=== PATIENT | female | born 1960 | race Caucasian/White ===

== ENCOUNTER 2023-08-08 10:30 | Outpatient (RCR) | payer OTHER, SELFPAY ==
--- NOTE | 2023-01-24 15:05 | PT.OIE ---
Current Diagnoses Constipation, unspecified (01/24/23) Stiffness of unspecified hip, not elsewhere classified (01/24/23) Sciatica, unspecified side (01/24/23) Muscle weakness (generalized) (01/24/23) Stress incontinence (female) (male) (01/24/23) Urge incontinence (01/24/23) Other female genital prolapse (01/24/23) Other reduced mobility (01/24/23) Past Medical History (Last Updated 02/21/21 @ 21:02 by Jocelyne Gregorio) Dyspareunia Hormone replacement therapy Hypothyroidism (~2009) Osteopenia Sciatica Past Surgical History (Last Updated 02/21/21 @ 21:02 by Jocelyne Gregorio) Anesthesia History of eye surgery (~1988) History of foot surgery (~2013) History of knee surgery (~2007) Visit Care Team Role Provider Type ALCON Moss Family Provider Advanced [employer]p Revenue Cycle Primary Care Provider Specialty: Medical Address: [address] [place] [address] Email: [email or web address] Lenore Fong MD Attending Provider Physician Referring Provider Specialty: Gynecology FIBERGLASS LAMINATOR Obstetrics Address: [address] [place] [address], [id number] Email: [email or web address] Physical Therapy Initial Evaluation PT-OP-A Visit Information Start: 01/10/23 18:46 Freq: Status: Active Protocol: Document 01/24/23 11:26 LRN (Rec: 01/24/23 13:12 LRN [id number]) Out-Patient Physical Therapy Visit Information Visit Information Visit Type Treatment Note Visit Start Time 11:26 Visit Stop Time 12:14 Total Visit Minutes 48 Visit Number 1 Evaluation Information Evaluation Date 01/24/23 Precautions Precautions Bilateral LE Sciatic pain PT-OP-B Current Condition Start: 01/10/23 18:46 Freq: Status: Active Protocol: Document 01/24/23 11:26 LRN (Rec: 01/24/23 13:12 LRN [id number]) Current Condition History of Current Condition Onset Date 2-3 yrs ago Current Complaints Feels something sometimes and has small leakages going to bathroom. History of Current Condition 2-3 yrs ago had pap smear and was told she had a uterine prolapse. A few months ago did follow up and had a 2-3 prolapse of uterus, bladder, and rectocele. Would prefer to not have uterus removed. Doesn't feel it has worsened in the past 5 yrs. Does Kegel ex as well as abdominal exercises at home. States she sometimes leaks as she is heading to the bathroom after an urge and sometimes leaks with sneezing. Developmental History Developmental History 2 children, vaginal delivery with torn perineum both times with stitch repair. 2nd the stitches tore and was not repaired, so she reports a flap that sticks out . No urinary leakage with biking or hiking. Has back that limits activity. Pt reported PMH: meniscus tear bilaterally. Treatment Goals Patient/Caregiver Goals Pt goal is to 1) Get uterus to lift and strengthening ligs to hold it up, 2) lift rectal and bladder, 3) learn ex's and what to do to prevent surgery , 4) become comfortable at opening of anus. Personal Factors Other Personal Factors That May Effect Sciatic bilateral LE's, Therapy/Recovery hypothyroid. R handed, PT-OP-C Subjective Start: 01/10/23 18:46 Freq: Status: Active Protocol: Document 01/24/23 11:26 LRN (Rec: 01/24/23 13:12 N [id number]) Patient Questionnaires Pelvic Pain and Urgency/Frequency Patient Symptom Scale Pelvic Pain Score 3 PT-OP-I Pelvic Floor Start: 01/10/23 18:46 Freq: Status: Active Protocol: Document 01/24/23 11:26 LRN (Rec: 01/24/23 13:12 N [id number]) Pelvic Floor Assessment Urine Urinary Symptoms Urge Sensation,Prolapse Other Urinary Symptoms Feels uncomfortable at anus. Leakage Size Small Leakage Cause Sneeze,Urge Other Leakage Causes Tampoline Bowel Bowel Surgery No Bowel Symptoms Constipation Other Bowel Symptoms Constipation traveling driving to parents 1x/4-6 wks (2 days before BM). Normally BM daily, quick. Bowel Movement Frequency 1x/daily Siren Stool Chart Comments BM's type 2-5. Pelvic Clock Pelvic Clock Other Tender at 1, 4 & 10 O'Clock. Prolapse Cystocele Grade 3 Rectocele Grade 2 Perineal Descent Resting Absent Bearing Absent Contraction Ability Manual Muscle Testing Left 2 Manual Muscle Testing Right 2 Manual Muscle Testing Anterior 3 Manual Muscle Testing Posterior 3 Muscle Endurance (Seconds) 2 Number of Quick Contractions In 10 5 Seconds Comments Pelvic Floor Comments Mild Dry and increased redness in external perineum. Pt has smaller pelvic opening. Abdominal, gluteals. hip AD assisting with PF contarction. PT-OP-J Posture/Palpation/Skin Start: 01/10/23 18:46 Freq: Status: Active Protocol: Document 01/24/23 11:26 LRN (Rec: 01/24/23 13:12 LRN [id number]) Posture Evaluation Position Standing T-Spine Posture Flattened L-Spine Posture Increased Lordosis Shoulder Posture Neutral,(L) Elevated Arm Posture (L) Internally Rotated,(R) Internally Rotated Pelvis Posture Anteriorly Tilted Knee Posture (L) Neutral,(R) Neutral Ankle/Foot Posture (L) Neutral,(R) Neutral Comments Posture Comments Decreased lordosis, slight anterior tilt PT-OP-K Range of Motion Start: 01/10/23 18:46 Freq: Status: Active Protocol: Document 01/24/23 11:26 LRN (Rec: 01/24/23 13:12 LRN [id number]) Lumbar Spine Range of Motion Lumbar Spine Active Degrees Testing Position Standing Flexion 115 Extension 30 Rotation Left 50 Rotation Right 50 Lateral Flexion Left 18 Lateral Flexion Right 15 Comments Lumbar ROM: Trunk Flexion is 115 deg?s with 83 deg?s hip flexion, Trunk extension is 30 deg?s with 10 deg?s hip extension Scoliosis in mid back upper curve apex to L, lower curve apex to R. Hip Goniometric Range of Motion Hip Right Passive Testing Position Supine Abduction 50 Internal Rotation 45 External Rotation 75 Left Passive Hip ROM WFL Yes Testing Position Supine Abduction 50 Internal Rotation 35 External Rotation 70 PT-OP-M Strength Start: 01/10/23 18:46 Freq: Status: Active Protocol: Document 01/24/23 11:26 LRN (Rec: 01/24/23 13:12 LRN [id number]) Trunk Strength Trunk Manual Muscle Testing Core Stabilization Not able to maintain core stab with MMT of R hip flex, unstable with hip AB/AD, L hip Ext. Hip Strength Hip Manual Muscle Testing Right Flexion (L2) 5 Normal Extension (S1) 3 Fair Abduction 5 Normal Adduction 5 Normal External Rotation 3+ Fair+ Internal Rotation 3+ Fair+ Comments Pain in lower R gluteals. Left Flexion (L2) 5 Normal Extension (S1) 5 Normal Abduction 5 Normal Adduction 5 Normal External Rotation 3+ Fair+ Internal Rotation 3 Fair PT-OP-Q Treatments Start: 01/10/23 18:46 Freq: Status: Active Protocol: Document 01/24/23 11:26 LRN (Rec: 01/24/23 13:12 LRN [id number]) Self-Care/Home Management Treatment Education Other Education Discussed results of evaluation, goals, and plan of care (POC). Pt agreeable to goals and POC. Pt educated in use of Bladder Diary and I/S in tracking for 1 week. Discussed use of 2 different diaries for tracking of bladder. Explained how to fill out diary and counting of urination times. Activities Self-Care/Home Management Activities Issued & reviewed HEP: Kegel ex's and discussed exercise of Quick Flicks, Long Holds and Aggravators. PT-OP-T Assessment and Plan Start: 01/10/23 18:46 Freq: Status: Active Protocol: Document 01/24/23 11:26 LRN (Rec: 01/24/23 13:12 LRN [id number]) Physical Therapy Assessment Rehab Potential Rehabilitation Potential Good Evaluation Complexity Number of Personal Factors/Comorbidities 1-2 Number of Body Systems Impaired 4 or More Clinical Presentation at Evaluation Evolving Impairments Impairments Activity Tolerance,Functional Mobility,Pain,ROM,Soft Tissue Mobility,Strength,Transfers Goals Four Impairment Discomfort in anal region. Mcc Goal (LTG) Pt will become comfortable at opening of anus. LTG Duration 04/24/23 Three Impairment Pt is not able to perform a PF contraction in the absence of abdominal/glut Short Term Goal (STG) Pt will be aware of the sensation of a proper PF contraction. STG Duration 02/15/23 Cardiology Fellow Goal (LTG) Pt will be able to isolate a PF contraction with a rectal and bladder lift, without overuse of the outer abdominal , gluteal, and hip AD muscles . LTG Duration 04/24/23 Two Impairment PF weakness with urinary leakage with an urge and stress. Short Term Goal (STG) Pt will be educated in urinary delay technique. STG Duration 02/01/23 Cardiology Fellow Goal (LTG) Pt will demonstrate improved PF strength per EMG biofeedback. LTG Duration 04/24/23 One Impairment Lacks appropriate self care HEP. Impairment PUF score 3. Short Term Goal (STG) Education in proper methods for transfer with coordination of breathing, PF contractions , and proper vulvar/genital care. STG Duration 02/01/23 Cardiology Fellow Goal (LTG) Pt will be independent with a self care HEP of PF/core strengthening and hip ROM exercises to work towards surgery prevention. LTG Duration 04/24/23 Assessment Summary Assessment Pt is a 62 yo female who presents with mixed urinary incontinence, and cytocele grade 3, and rectocele grade 2 due to weak pelvic floor. Uterus position was not checked today and will be assessed at the next visit. The pt demonstrates decreased long hold and quick contraction strength and coordination of PF tightening with breathholding and obvious substitution of accessory muscles (gluteals, hip adductors and core muscles). Her PF weakness is exacerbated by her sciatic nerve condition and decreased hip symmetry of mobility and her current exercise regime. Constipation is probably a factor in what appears to be the progressive nature of her prolapse. Education in proper methods for transfer and exercise is needed, with coordination of breathing techniques. Her external PF tissues appear mildly dry and red due to tissue irritation. The pt will benefit from skilled physical therapy to achieve the above stated goals . Physical Therapy Plan Frequency and Duration Frequency of Treatment 1x/Week Plan of Care Start Date 01/24/23 Plan of Care End Date 04/24/23 Therapeutic Interventions Therapeutic Interventions Home Exercise Program,Joint Mobilizations,Manual Therapy, Neuromuscular Re-education, Patient/Caregiver Education, Self-Care/Home Management,Soft Tissue Mobilization, Therapeutic Activities, Therapeutic Exercises Modalities Biofeedback,Electric Stimulation Next Visit Focus/Plan Next Note Type Treatment Note Next Visit Plan EMG Biofeedback of PF & assess postion of uterus and external rectal sphincter for proplase. Review Bladder dairy and discussed fluid intake (AM/PM) , bowel movement frequency, & nighttime voiding frequency. Pt education and lengthy discussion of how to have Bowel movements. bowel movements without holding breath and discussed squatty potty, with handout issued for squatty potty. Pt education and discussion in Urinary urge technique with handout issued. Pt education proper vulvar and perineal care with handout issued. Pt educated in PF muscles and internal organ positioning, explaining prolapse condition and discuss how this can worsen with decreased bowel mobility and breath holding. Discussed different pads and usage (urine vs menstrual). Possible need for Sacral balancing. Education in proper methods for transfer with coordination of breathing.
--- NOTE | 2023-01-24 15:05 | PT.OPPOC ---
Physical, Occupational & Speech Therapy At [facility] Current Diagnoses Constipation, unspecified (01/24/23) Stiffness of unspecified hip, not elsewhere classified (01/24/23) Sciatica, unspecified side (01/24/23) Muscle weakness (generalized) (01/24/23) Stress incontinence (female) (male) (01/24/23) Urge incontinence (01/24/23) Other female genital prolapse (01/24/23) Other reduced mobility (01/24/23) Visit Care Team Role Provider Type ALCON Moss Family Provider Advanced Patient Safety Tech Primary Care Provider Specialty: Medical Address: [address] [place] [address], [facility] Email: [email or web address] Lenore Fong MD Attending Provider Physician Referring Provider Specialty: Gynecology SOCIAL MEDIA CAMPAIGN MANAGER Obstetrics Address: [address] [place] [address], [id number] Email: [email or web address] Plan Of Care PT-OP-T Assessment and Plan Start: 01/10/23 18:46 Freq: Status: Active Protocol: Document 01/24/23 11:26 LRN (Rec: 01/24/23 13:12 LRN [id number]) Physical Therapy Assessment Rehab Potential Rehabilitation Potential Good Evaluation Complexity Number of Personal Factors/Comorbidities 1-2 Number of Body Systems Impaired 4 or More Clinical Presentation at Evaluation Evolving Impairments Impairments Activity Tolerance,Functional Mobility,Pain,ROM,Soft Tissue Mobility,Strength,Transfers Goals Four Impairment Discomfort in anal region. Advertising Internship Goal (LTG) Pt will become comfortable at opening of anus. LTG Duration 04/24/23 Three Impairment Pt is not able to perform a PF contraction in the absence of abdominal/glut Short Term Goal (STG) Pt will be aware of the sensation of a proper PF contraction. STG Duration 02/15/23 Advertising Internship Goal (LTG) Pt will be able to isolate a PF contraction with a rectal and bladder lift, without overuse of the outer abdominal , gluteal, and hip AD muscles . LTG Duration 04/24/23 Two Impairment PF weakness with urinary leakage with an urge and stress. Short Term Goal (STG) Pt will be educated in urinary delay technique. STG Duration 02/01/23 Care Home Goal (LTG) Pt will demonstrate improved PF strength per EMG biofeedback. LTG Duration 04/24/23 One Impairment Lacks appropriate self care HEP. Impairment PUF score 3. Short Term Goal (STG) Education in proper methods for transfer with coordination of breathing, PF contractions , and proper vulvar/genital care. STG Duration 02/01/23 Advertising Internship Goal (LTG) Pt will be independent with a self care HEP of PF/core strengthening and hip ROM exercises to work towards surgery prevention. LTG Duration 04/24/23 Assessment Summary Assessment Pt is a 62 yo female who presents with mixed urinary incontinence, and cytocele grade 3, and rectocele grade 2 due to weak pelvic floor. Uterus position was not checked today and will be assessed at the next visit. The pt demonstrates decreased long hold and quick contraction strength and coordination of PF tightening with breathholding and obvious substitution of accessory muscles (gluteals, hip adductors and core muscles). Her PF weakness is exacerbated by her sciatic nerve condition and decreased hip symmetry of mobility and her current exercise regime. Constipation is probably a factor in what appears to be the progressive nature of her prolapse. Education in proper methods for transfer and exercise is needed, with coordination of breathing techniques. Her external PF tissues appear mildly dry and red due to tissue irritation. The pt will benefit from skilled physical therapy to achieve the above stated goals . Physical Therapy Plan Frequency and Duration Frequency of Treatment 1x/Week Plan of Care Start Date 01/24/23 Plan of Care End Date 04/24/23 Therapeutic Interventions Therapeutic Interventions Home Exercise Program,Joint Mobilizations,Manual Therapy, Neuromuscular Re-education, Patient/Caregiver Education, Self-Care/Home Management,Soft Tissue Mobilization, Therapeutic Activities, Therapeutic Exercises Modalities Biofeedback,Electric Stimulation Next Visit Focus/Plan Next Note Type Treatment Note Next Visit Plan EMG Biofeedback of PF & assess postion of uterus and external rectal sphincter for proplase. Review Bladder dairy and discussed fluid intake (AM/PM) , bowel movement frequency, & nighttime voiding frequency. Pt education and lengthy discussion of how to have Bowel movements. bowel movements without holding breath and discussed squatty potty, with handout issued for squatty potty. Pt education and discussion in Urinary urge technique with handout issued. Pt education proper vulvar and perineal care with handout issued. Pt educated in PF muscles and internal organ positioning, explaining prolapse condition and discuss how this can worsen with decreased bowel mobility and breath holding. Discussed different pads and usage (urine vs menstrual). Possible need for Sacral balancing. Education in proper methods for transfer with coordination of breathing. Plan of Care Dates Plan of Care Start Date 01/24/23 Plan of Care End Date 04/24/23 Electronically Signed by: Juany Collins, PT 01/24/23 [id number] If you are in agreement with this Plan of Care, please return a signed and dated copy. I have reviewed this Plan of Care and certify that the skilled therapy services above are required to meet the patient?s needs. Physician Signature Date Printed Name and Credentials Clinical Instructor Signature Printed Name and Credentials
--- NOTE | 2023-01-31 17:36 | PT.OTN ---
Current Diagnoses Constipation, unspecified (01/31/23) Stiffness of unspecified hip, not elsewhere classified (01/31/23) Sciatica, unspecified side (01/31/23) Muscle weakness (generalized) (01/31/23) Stress incontinence (female) (male) (01/31/23) Urge incontinence (01/31/23) Other female genital prolapse (01/31/23) Other reduced mobility (01/31/23) Physical Therapy Treatment Note PT-OP-A Visit Information Start: 01/10/23 18:46 Freq: Status: Active Protocol: Document 01/31/23 14:07 LRN (Rec: 01/31/23 17:35 LRN [id number]) Out-Patient Physical Therapy Visit Information Visit Information Visit Type Treatment Note Visit Start Time 14:07 Visit Stop Time 15:02 Total Visit Minutes 55 Visit Number 2 Evaluation Information Evaluation Date 01/24/23 Precautions Precautions Bilateral LE Sciatic pain PT-OP-B Current Condition Start: 01/10/23 18:46 Freq: Status: Active Protocol: Document 01/24/23 11:26 LRN (Rec: 01/24/23 13:12 LRN [id number]) Current Condition History of Current Condition Onset Date 2-3 yrs ago Current Complaints Feels something sometimes and has small leakages going to bathroom. History of Current Condition 2-3 yrs ago had pap smear and was told she had a uterine prolapse. A few months ago did follow up and had a 2-3 prolapse of uterus, bladder, and rectocele. Would prefer to not have uterus removed. Doesn't feel it has worsened in the past 5 yrs. Does Kegel ex as well as abdominal exercises at home. States she sometimes leaks as she is heading to the bathroom after an urge and sometimes leaks with sneezing. Developmental History Developmental History 2 children, vaginal delivery with torn perineum both times with stitch repair. 2nd the stitches tore and was not repaired, so she reports a flap that sticks out . No urinary leakage with biking or hiking. Has back that limits activity. Pt reported PMH: meniscus tear bilaterally. Treatment Goals Patient/Caregiver Goals Pt goal is to 1) Get uterus to lift and strengthening ligs to hold it up, 2) lift rectal and bladder, 3) learn ex's and what to do to prevent surgery , 4) become comfortable at opening of anus. Personal Factors Other Personal Factors That May Effect Sciatic bilateral LE's, Therapy/Recovery hypothyroid. R handed, PT-OP-C Subjective Start: 01/10/23 18:46 Freq: Status: Active Protocol: Document 01/31/23 14:07 LRN (Rec: 01/31/23 17:35 LRN [id number]) OP-PT Subjective Patient Comments Patient Comments Per bladder diary, she had one time period of constipation. Reports she actually measure her urine output in a cup. States she is under a lot of stress. PT-OP-I Pelvic Floor Start: 01/10/23 18:46 Freq: Status: Active Protocol: Document 01/31/23 14:07 LRN (Rec: 01/31/23 17:35 LRN [id number]) Pelvic Floor Assessment Prolapse Prolapse Comments Uterine prolapse felt. SEMG (uV) Baseline 2.7 Quick Contraction 14.2 10 Second Contraction 12.8 Recruitment Pattern Good Relaxation Fair Holding Poor/Slow Stability of Hold Poor/Slow SEMG Stability of Rest Fair Comments Pelvic Floor Comments Quick Flicks: 10 reps strength (uV's): avg work 14.2, avg rest 6.8. 20 reps strength (uV's): avg work 13.8, avg rest 6.1. Long Holds: 10 reps strength (uV's): avg work 12.8, avg rest 4.6. 20 reps strength (uV's): avg work 12.6, avg rest 3.6. PT-OP-J Posture/Palpation/Skin Start: 01/10/23 18:46 Freq: Status: Active Protocol: Document 01/24/23 11:26 LRN (Rec: 01/24/23 13:12 LRN [id number]) Posture Evaluation Position Standing T-Spine Posture Flattened L-Spine Posture Increased Lordosis Shoulder Posture Neutral,(L) Elevated Arm Posture (L) Internally Rotated,(R) Internally Rotated Pelvis Posture Anteriorly Tilted Knee Posture (L) Neutral,(R) Neutral Ankle/Foot Posture (L) Neutral,(R) Neutral Comments Posture Comments Decreased lordosis, slight anterior tilt PT-OP-K Range of Motion Start: 01/10/23 18:46 Freq: Status: Active Protocol: Document 01/24/23 11:26 LRN (Rec: 01/24/23 13:12 LRN [id number]) Lumbar Spine Range of Motion Lumbar Spine Active Degrees Testing Position Standing Flexion 115 Extension 30 Rotation Left 50 Rotation Right 50 Lateral Flexion Left 18 Lateral Flexion Right 15 Comments Lumbar ROM: Trunk Flexion is 115 deg?s with 83 deg?s hip flexion, Trunk extension is 30 deg?s with 10 deg?s hip extension Scoliosis in mid back upper curve apex to L, lower curve apex to R. Hip Goniometric Range of Motion Hip Right Passive Testing Position Supine Abduction 50 Internal Rotation 45 External Rotation 75 Left Passive Hip ROM WFL Yes Testing Position Supine Abduction 50 Internal Rotation 35 External Rotation 70 PT-OP-M Strength Start: 01/10/23 18:46 Freq: Status: Active Protocol: Document 01/24/23 11:26 LRN (Rec: 01/24/23 13:12 LRN [id number]) Trunk Strength Trunk Manual Muscle Testing Core Stabilization Not able to maintain core stab with MMT of R hip flex, unstable with hip AB/AD, L hip Ext. Hip Strength Hip Manual Muscle Testing Right Flexion (L2) 5 Normal Extension (S1) 3 Fair Abduction 5 Normal Adduction 5 Normal External Rotation 3+ Fair+ Internal Rotation 3+ Fair+ Comments Pain in lower R gluteals. Left Flexion (L2) 5 Normal Extension (S1) 5 Normal Abduction 5 Normal Adduction 5 Normal External Rotation 3+ Fair+ Internal Rotation 3 Fair PT-OP-Q Treatments Start: 01/10/23 18:46 Freq: Status: Active Protocol: Document 01/31/23 14:07 LRN (Rec: 01/31/23 17:35 LRN [id number]) Therapeutic Exercises Supine Exercises Bowel/ILU massage Supine Exercise Name Bowel/ILU massage Reps/Minutes x 3 Comments Pt cued for direction, start/ stop locations. PF contraction Supine Exercise Name PF contraction w/assess of anus for rectal prolapse vs rectocele Reps/Minutes 2' Long Holds Supine Exercise Name Long Holds Reps/Minutes 10 SH/10 SH rest Comments 10 & 20 rep contractions (see PF assessment above) Quick Flicks Supine Exercise Name Quick Flicks Equipment Used vEMG electrode Reps/Minutes 2 sec/5 sec rest Comments 10 & 20 rep contractions (see PF assessment above) Self-Care/Home Management Treatment Education Other Education Educated and discussed norms for hydration and regarding difference with types of fluid ingested. Recommended pt improve fluid intake without increasing caffeine intake. Pt education and discussion of Food irritants and effect on bladder. Education and discussion of bowel massage and ILU bowel massage. Activities Self-Care/Home Management Activities Issued & reviewed handout for bladder irritants, bowel massage. Issued at pt request [place] stool types. Handout issued for diaphragmatic breathing. PT-OP-T Assessment and Plan Start: 01/10/23 18:46 Freq: Status: Active Protocol: Document 01/31/23 14:07 LRN (Rec: 01/31/23 17:35 LRN [id number]) Physical Therapy Assessment Goals Four Impairment Discomfort in anal region. Prison Goal (LTG) Pt will become comfortable at opening of anus. LTG Duration 04/24/23 Three Impairment Pt is not able to perform a PF contraction in the absence of abdominal/glut Short Term Goal (STG) Pt will be aware of the sensation of a proper PF contraction. STG Duration 02/15/23 Screw Machine Set Up Operator Tool Goal (LTG) Pt will be able to isolate a PF contraction with a rectal and bladder lift, without overuse of the outer abdominal , gluteal, and hip AD muscles . LTG Duration 04/24/23 Two Impairment PF weakness with urinary leakage with an urge and stress. Short Term Goal (STG) Pt will be educated in urinary delay technique. STG Duration 02/01/23 Prison Goal (LTG) Pt will demonstrate improved PF strength per EMG biofeedback. LTG Duration 04/24/23 One Impairment Lacks appropriate self care HEP. Impairment PUF score 3. Short Term Goal (STG) Education in proper methods for transfer with coordination of breathing, PF contractions , and proper vulvar/genital care. STG Duration 02/01/23 Screw Machine Set Up Operator Tool Goal (LTG) Pt will be independent with a self care HEP of PF/core strengthening and hip ROM exercises to work towards surgery prevention. LTG Duration 04/24/23 Assessment Summary Assessment Pt with mixed urinary incontinence and cytocele grade 3, and rectocele grade 2 due to weak pelvic floor. Noted today uterine prolapse but no rectal prolapse, rectocele grade 2. BM mostly once per day and no significant problem noted with nighttime voiding, possibly due to limited fluid intake. Extra time needed for use and assist for placing vEMG electrode. Pt receptive to education and of information given. Physical Therapy Plan Frequency and Duration Frequency of Treatment 1x/Week Plan of Care Start Date 01/24/23 Plan of Care End Date 04/24/23 Next Visit Focus/Plan Next Note Type Treatment Note Next Visit Plan EMG Biofeedback for PF Long Hold strengthening improved relaxation tone. Pt education and discussion of bowel movements without holding breath and discussed squatty potty, with handout issued for squatty potty. Pt education and discussion in Urinary urge technique with handout issued. Pt education proper vulvar and perineal care with handout issued. Pt educated in PF muscles and internal organ positioning if needed. Explain prolapse condition and discuss how this can worsen with breath holding (and decreased bowel mobility). Discussed different pads and usage (urine vs menstrual). Possible need for Sacral balancing. Education in proper methods for transfer with coordination of breathing. Strengthen PF long holds and Quick Flicks resting tone ( decrease)
--- NOTE | 2023-02-07 17:40 | PT.OTN ---
Current Diagnoses Constipation, unspecified (02/07/23) Stiffness of unspecified hip, not elsewhere classified (02/07/23) Sciatica, unspecified side (02/07/23) Muscle weakness (generalized) (02/07/23) Stress incontinence (female) (male) (02/07/23) Urge incontinence (02/07/23) Other female genital prolapse (02/07/23) Other reduced mobility (02/07/23) Physical Therapy Treatment Note PT-OP-A Visit Information Start: 01/10/23 18:46 Freq: Status: Active Protocol: Document 02/07/23 08:21 LRN (Rec: 02/07/23 09:05 LRN [id number]) Out-Patient Physical Therapy Visit Information Visit Information Visit Type Treatment Note Visit Start Time 08:21 Visit Stop Time 09:59 Total Visit Minutes 38 Evaluation Information Evaluation Date 02/07/23 Precautions Precautions Bilateral LE Sciatic pain PT-OP-B Current Condition Start: 01/10/23 18:46 Freq: Status: Active Protocol: Document 01/24/23 11:26 LRN (Rec: 01/24/23 13:12 LRN [id number]) Current Condition History of Current Condition Onset Date 2-3 yrs ago Current Complaints Feels something sometimes and has small leakages going to bathroom. History of Current Condition 2-3 yrs ago had pap smear and was told she had a uterine prolapse. A few months ago did follow up and had a 2-3 prolapse of uterus, bladder, and rectocele. Would prefer to not have uterus removed. Doesn't feel it has worsened in the past 5 yrs. Does Kegel ex as well as abdominal exercises at home. States she sometimes leaks as she is heading to the bathroom after an urge and sometimes leaks with sneezing. Developmental History Developmental History 2 children, vaginal delivery with torn perineum both times with stitch repair. 2nd the stitches tore and was not repaired, so she reports a flap that sticks out . No urinary leakage with biking or hiking. Has back that limits activity. Pt reported PMH: meniscus tear bilaterally. Treatment Goals Patient/Caregiver Goals Pt goal is to 1) Get uterus to lift and strengthening ligs to hold it up, 2) lift rectal and bladder, 3) learn ex's and what to do to prevent surgery , 4) become comfortable at opening of anus. Personal Factors Other Personal Factors That May Effect Sciatic bilateral LE's, Therapy/Recovery hypothyroid. R handed, PT-OP-C Subjective Start: 01/10/23 18:46 Freq: Status: Active Protocol: Document 02/07/23 08:21 LRN (Rec: 02/07/23 09:05 LRN [id number]) OP-PT Subjective Patient Comments Patient Comments A little less irritation on the backside. Doesn't feel it as much anymore. PT-OP-I Pelvic Floor Start: 01/10/23 18:46 Freq: Status: Active Protocol: Document 01/31/23 14:07 LRN (Rec: 01/31/23 17:35 LRN [id number]) Pelvic Floor Assessment Prolapse Prolapse Comments Uterine prolapse felt. SEMG (uV) Baseline 2.7 Quick Contraction 14.2 10 Second Contraction 12.8 Recruitment Pattern Good Relaxation Fair Holding Poor/Slow Stability of Hold Poor/Slow SEMG Stability of Rest Fair Comments Pelvic Floor Comments Quick Flicks: 10 reps strength (uV's): avg work 14.2, avg rest 6.8. 20 reps strength (uV's): avg work 13.8, avg rest 6.1. Long Holds: 10 reps strength (uV's): avg work 12.8, avg rest 4.6. 20 reps strength (uV's): avg work 12.6, avg rest 3.6. PT-OP-J Posture/Palpation/Skin Start: 01/10/23 18:46 Freq: Status: Active Protocol: Document 01/24/23 11:26 LRN (Rec: 01/24/23 13:12 LRN [id number]) Posture Evaluation Position Standing T-Spine Posture Flattened L-Spine Posture Increased Lordosis Shoulder Posture Neutral,(L) Elevated Arm Posture (L) Internally Rotated,(R) Internally Rotated Pelvis Posture Anteriorly Tilted Knee Posture (L) Neutral,(R) Neutral Ankle/Foot Posture (L) Neutral,(R) Neutral Comments Posture Comments Decreased lordosis, slight anterior tilt PT-OP-K Range of Motion Start: 01/10/23 18:46 Freq: Status: Active Protocol: Document 01/24/23 11:26 LRN (Rec: 01/24/23 13:12 LRN [id number]) Lumbar Spine Range of Motion Lumbar Spine Active Degrees Testing Position Standing Flexion 115 Extension 30 Rotation Left 50 Rotation Right 50 Lateral Flexion Left 18 Lateral Flexion Right 15 Comments Lumbar ROM: Trunk Flexion is 115 deg?s with 83 deg?s hip flexion, Trunk extension is 30 deg?s with 10 deg?s hip extension Scoliosis in mid back upper curve apex to L, lower curve apex to R. Hip Goniometric Range of Motion Hip Right Passive Testing Position Supine Abduction 50 Internal Rotation 45 External Rotation 75 Left Passive Hip ROM WFL Yes Testing Position Supine Abduction 50 Internal Rotation 35 External Rotation 70 PT-OP-M Strength Start: 01/10/23 18:46 Freq: Status: Active Protocol: Document 01/24/23 11:26 LRN (Rec: 01/24/23 13:12 LRN [id number]) Trunk Strength Trunk Manual Muscle Testing Core Stabilization Not able to maintain core stab with MMT of R hip flex, unstable with hip AB/AD, L hip Ext. Hip Strength Hip Manual Muscle Testing Right Flexion (L2) 5 Normal Extension (S1) 3 Fair Abduction 5 Normal Adduction 5 Normal External Rotation 3+ Fair+ Internal Rotation 3+ Fair+ Comments Pain in lower R gluteals. Left Flexion (L2) 5 Normal Extension (S1) 5 Normal Abduction 5 Normal Adduction 5 Normal External Rotation 3+ Fair+ Internal Rotation 3 Fair PT-OP-Q Treatments Start: 01/10/23 18:46 Freq: Status: Active Protocol: Document 02/07/23 08:21 LRN (Rec: 02/07/23 09:05 LRN [id number]) Therapeutic Exercises Supine Exercises PF contraction Supine Exercise Name PF contraction in isolation of TA & hip AD's Reps/Minutes 10' Comments Much v cuing and self phys cuing needed. Self-Care/Home Management Treatment Education Other Education Extended discussions of: -Bladder diary and choices of pateint. Recommendations made regarding fluid intake and types, -Voiding frequencies based on types of fluid intake, voiding amounts. -Possible LB involvement with PF frequencies due to decreased PF stability with LB instability. -Discussed at length pressure system of abdominal region. -Discussed effect of dehydration on BM's and abdominal pressure management. PT-OP-T Assessment and Plan Start: 01/10/23 18:46 Freq: Status: Active Protocol: Document 02/07/23 08:21 LRN (Rec: 02/07/23 09:05 LRN [id number]) Physical Therapy Assessment Goals Four Impairment Discomfort in anal region. Correction Goal (LTG) Pt will become comfortable at opening of anus. LTG Duration 04/24/23 Three Impairment Pt is not able to perform a PF contraction in the absence of abdominal/glut Short Term Goal (STG) Pt will be aware of the sensation of a proper PF contraction. STG Duration 02/15/23 Management Scientist Goal (LTG) Pt will be able to isolate a PF contraction with a rectal and bladder lift, without overuse of the outer abdominal , gluteal, and hip AD muscles . LTG Duration 04/24/23 Two Impairment PF weakness with urinary leakage with an urge and stress. Short Term Goal (STG) Pt will be educated in urinary delay technique. STG Duration 02/01/23 Management Scientist Goal (LTG) Pt will demonstrate improved PF strength per EMG biofeedback. LTG Duration 04/24/23 One Impairment Lacks appropriate self care HEP. Impairment PUF score 3. Short Term Goal (STG) Education in proper methods for transfer with coordination of breathing, PF contractions , and proper vulvar/genital care. STG Duration 02/01/23 Correction Goal (LTG) Pt will be independent with a self care HEP of PF/core strengthening and hip ROM exercises to work towards surgery prevention. LTG Duration 04/24/23 Assessment Summary Assessment Unable to use EMG biofeedback today. Pt able to perform PF contraction in isolation of the hip AD & Gluteal ms, but TA tightens mildly. Pt was receptive to pt education and discussion of self care (see self care). Pt is not wanting to give up coffee; therefore it was discussed fluid intake is a choice and as long as the pt is aware of the consequencies of drinking bladder irritatants on her frequency of voiding. Pt appears to be okay with voiding every hour after drinking coffee, but otherwise voiding every 2 hrs may be due to small bladder and habit ; therefore bladder retraining may be needed. Physical Therapy Plan Frequency and Duration Frequency of Treatment 1x/Week Plan of Care Start Date 01/24/23 Plan of Care End Date 04/24/23 Next Visit Focus/Plan Next Note Type Treatment Note Next Visit Plan EMG Biofeedback for PF Long Hold strengthening improved relaxation tone. Pt education and discussion of bowel movements without holding breath and discuss squatty potty, with handout issued for squatty potty. Pt education and discussion in Urinary urge technique with handout issued. Pt education proper vulvar and perineal care with handout issued. Pt educated in PF muscles and internal organ positioning if needed. Discussed different pads and usage (urine vs menstrual). Possible need for Sacral balancing. Education in proper methods for transfer with coordination of breathing. Strengthen PF long holds and Quick Flicks resting tone ( decrease)
--- NOTE | 2023-02-14 17:19 | PT.OTN ---
Current Diagnoses Constipation, unspecified (02/14/23) Stiffness of unspecified hip, not elsewhere classified (02/14/23) Sciatica, unspecified side (02/14/23) Muscle weakness (generalized) (02/14/23) Stress incontinence (female) (male) (02/14/23) Urge incontinence (02/14/23) Other female genital prolapse (02/14/23) Other reduced mobility (02/14/23) Physical Therapy Treatment Note PT-OP-A Visit Information Start: 01/10/23 18:46 Freq: Status: Active Protocol: Document 02/14/23 10:36 LRN (Rec: 02/14/23 11:20 LRN [id number]) Out-Patient Physical Therapy Visit Information Visit Information Visit Type Treatment Note Visit Start Time 10:36 Visit Stop Time 11:14 Total Visit Minutes 38 Visit Number 4 Evaluation Information Evaluation Date 02/07/23 Precautions Precautions Bilateral LE Sciatic pain PT-OP-B Current Condition Start: 01/10/23 18:46 Freq: Status: Active Protocol: Document 01/24/23 11:26 LRN (Rec: 01/24/23 13:12 LRN [id number]) Current Condition History of Current Condition Onset Date 2-3 yrs ago Current Complaints Feels something sometimes and has small leakages going to bathroom. History of Current Condition 2-3 yrs ago had pap smear and was told she had a uterine prolapse. A few months ago did follow up and had a 2-3 prolapse of uterus, bladder, and rectocele. Would prefer to not have uterus removed. Doesn't feel it has worsened in the past 5 yrs. Does Kegel ex as well as abdominal exercises at home. States she sometimes leaks as she is heading to the bathroom after an urge and sometimes leaks with sneezing. Developmental History Developmental History 2 children, vaginal delivery with torn perineum both times with stitch repair. 2nd the stitches tore and was not repaired, so she reports a flap that sticks out . No urinary leakage with biking or hiking. Has back that limits activity. Pt reported PMH: meniscus tear bilaterally. Treatment Goals Patient/Caregiver Goals Pt goal is to 1) Get uterus to lift and strengthening ligs to hold it up, 2) lift rectal and bladder, 3) learn ex's and what to do to prevent surgery , 4) become comfortable at opening of anus. Personal Factors Other Personal Factors That May Effect Sciatic bilateral LE's, Therapy/Recovery hypothyroid. R handed, PT-OP-C Subjective Start: 01/10/23 18:46 Freq: Status: Active Protocol: Document 02/14/23 10:36 LRN (Rec: 02/14/23 11:20 LRN [id number]) OP-PT Subjective Patient Comments Patient Comments Pt has many questions regarding her fears of worsening of her situation and talk of surgery. Pt became on edge of tears with talk of her social stressors of her parents. Pt emotionally labile. PT-OP-I Pelvic Floor Start: 01/10/23 18:46 Freq: Status: Active Protocol: Document 01/31/23 14:07 LRN (Rec: 01/31/23 17:35 LRN [id number]) Pelvic Floor Assessment Prolapse Prolapse Comments Uterine prolapse felt. SEMG (uV) Baseline 2.7 Quick Contraction 14.2 10 Second Contraction 12.8 Recruitment Pattern Good Relaxation Fair Holding Poor/Slow Stability of Hold Poor/Slow SEMG Stability of Rest Fair Comments Pelvic Floor Comments Quick Flicks: 10 reps strength (uV's): avg work 14.2, avg rest 6.8. 20 reps strength (uV's): avg work 13.8, avg rest 6.1. Long Holds: 10 reps strength (uV's): avg work 12.8, avg rest 4.6. 20 reps strength (uV's): avg work 12.6, avg rest 3.6. PT-OP-J Posture/Palpation/Skin Start: 01/10/23 18:46 Freq: Status: Active Protocol: Document 01/24/23 11:26 LRN (Rec: 01/24/23 13:12 LRN [id number]) Posture Evaluation Position Standing T-Spine Posture Flattened L-Spine Posture Increased Lordosis Shoulder Posture Neutral,(L) Elevated Arm Posture (L) Internally Rotated,(R) Internally Rotated Pelvis Posture Anteriorly Tilted Knee Posture (L) Neutral,(R) Neutral Ankle/Foot Posture (L) Neutral,(R) Neutral Comments Posture Comments Decreased lordosis, slight anterior tilt PT-OP-K Range of Motion Start: 01/10/23 18:46 Freq: Status: Active Protocol: Document 01/24/23 11:26 LRN (Rec: 01/24/23 13:12 LRN [id number]) Lumbar Spine Range of Motion Lumbar Spine Active Degrees Testing Position Standing Flexion 115 Extension 30 Rotation Left 50 Rotation Right 50 Lateral Flexion Left 18 Lateral Flexion Right 15 Comments Lumbar ROM: Trunk Flexion is 115 deg?s with 83 deg?s hip flexion, Trunk extension is 30 deg?s with 10 deg?s hip extension Scoliosis in mid back upper curve apex to L, lower curve apex to R. Hip Goniometric Range of Motion Hip Right Passive Testing Position Supine Abduction 50 Internal Rotation 45 External Rotation 75 Left Passive Hip ROM WFL Yes Testing Position Supine Abduction 50 Internal Rotation 35 External Rotation 70 PT-OP-M Strength Start: 01/10/23 18:46 Freq: Status: Active Protocol: Document 01/24/23 11:26 LRN (Rec: 01/24/23 13:12 LRN [id number]) Trunk Strength Trunk Manual Muscle Testing Core Stabilization Not able to maintain core stab with MMT of R hip flex, unstable with hip AB/AD, L hip Ext. Hip Strength Hip Manual Muscle Testing Right Flexion (L2) 5 Normal Extension (S1) 3 Fair Abduction 5 Normal Adduction 5 Normal External Rotation 3+ Fair+ Internal Rotation 3+ Fair+ Comments Pain in lower R gluteals. Left Flexion (L2) 5 Normal Extension (S1) 5 Normal Abduction 5 Normal Adduction 5 Normal External Rotation 3+ Fair+ Internal Rotation 3 Fair PT-OP-Q Treatments Start: 01/10/23 18:46 Freq: Status: Active Protocol: Document 02/14/23 10:36 LRN (Rec: 02/14/23 11:20 LRN [id number]) Self-Care/Home Management Treatment Education Other Education Discussed and reviewed at length: anatomy of pelvis (PF muscles strength and internal organ positioning relationship with handout of 2 dimensional drawings issued), connection to sciatic nerve and bowel management/fluid management, holistic involvement, rehab potential, pt current progress , use of deep breathing for reduction of core pressure reduction for stressors outside of her home, Pt education and discussion of bowel movements without holding breath and discussion of use of squatty potty, with handout issued for squatty potty. Discussed connection between deep breathing and sympathetic tone. Discussed pt compliance, functional and recreational activities requiring pt compliance with coordination of breathing/core pressures, and progression with her program per POC. Discussed pessary options and recommended pt discuss with referring physician possible use. Activities Self-Care/Home Management Activities Issued & reviewed handout for squatty potty, and pelvic anatomy. Issued genital hygiene and vulvar care for women with I/S for pt to read and review next visit as needed. PT-OP-T Assessment and Plan Start: 01/10/23 18:46 Freq: Status: Active Protocol: Document 02/14/23 10:36 LRN (Rec: 02/14/23 11:20 LRN [id number]) Physical Therapy Assessment Goals Four Impairment Discomfort in anal region. Detention Goal (LTG) Pt will become comfortable at opening of anus. LTG Duration 04/24/23 Three Impairment Pt is not able to perform a PF contraction in the absence of abdominal/glut Short Term Goal (STG) Pt will be aware of the sensation of a proper PF contraction. STG Duration 02/15/23 Detention Goal (LTG) Pt will be able to isolate a PF contraction with a rectal and bladder lift, without overuse of the outer abdominal , gluteal, and hip AD muscles . LTG Duration 04/24/23 Two Impairment PF weakness with urinary leakage with an urge and stress. Short Term Goal (STG) Pt will be educated in urinary delay technique. STG Duration 02/01/23 Substance Abuse Specialist Goal (LTG) Pt will demonstrate improved PF strength per EMG biofeedback. LTG Duration 04/24/23 One Impairment Lacks appropriate self care HEP. Impairment PUF score 3. Short Term Goal (STG) Education in proper methods for transfer with coordination of breathing, PF contractions , and proper vulvar/genital care. 02/14/23: Educated in pt transfers with coordination of breathing and PF contractions . Issued handout for proper vulvar/genital care. STG Duration 02/01/23 partially met goal 02/14/23 Detention Goal (LTG) Pt will be independent with a self care HEP of PF/core strengthening and hip ROM exercises to work towards surgery prevention. 02/14/23: I/S pt in transfers with coordination of breathing and PF strengthening (long holds and quick flicks). LTG Duration 04/24/23 progressed 02/14/23 . Assessment Summary Assessment Pt with mixed urinary incontinence and cytocele grade 3, and rectocele grade 2 due to weak pelvic floor. Pt attends in distress due to lack of knowledge of her condition, connection between pelvic floor and sciatic n pain, her rehab potential, uncertainty of progress, and stressors outside of her home. Pt needing discussion and education and understanding in all these areas for reassurance, compliance, and progression with program POC. Not able to EMG biofeedback or strengthening due to education/discussion needs. Physical Therapy Plan Frequency and Duration Frequency of Treatment 1x/Week Plan of Care Start Date 01/24/23 Plan of Care End Date 04/24/23 Next Visit Focus/Plan Next Note Type Treatment Note Next Visit Plan Review issued vulvar and perineal care handouts (STG #1 ), and transfers with coordination of breathing. EMG Biofeedback for PF Long Hold strengthening improved relaxation tone. Pt education and discussion in Urinary urge technique with handout issued. Discussed different pads and usage (urine vs menstrual). Possible need for Sacral balancing. Strengthen PF long holds and Quick Flicks resting tone ( decrease) Add hip strethces.
--- NOTE | 2023-02-21 17:42 | PT.OTN ---
Current Diagnoses Constipation, unspecified (02/21/23) Stiffness of unspecified hip, not elsewhere classified (02/21/23) Sciatica, unspecified side (02/21/23) Muscle weakness (generalized) (02/21/23) Stress incontinence (female) (male) (02/21/23) Urge incontinence (02/21/23) Other female genital prolapse (02/21/23) Other reduced mobility (02/21/23) Physical Therapy Treatment Note PT-OP-A Visit Information Start: 01/10/23 18:46 Freq: Status: Active Protocol: Document 02/21/23 10:33 LRN (Rec: 02/21/23 11:18 LRN [id number]) Out-Patient Physical Therapy Visit Information Visit Information Visit Type Treatment Note Visit Start Time 10:33 Visit Stop Time 11:15 Total Visit Minutes 42 Visit Number 4 Evaluation Information Evaluation Date 02/07/23 Precautions Precautions Bilateral LE Sciatic pain PT-OP-B Current Condition Start: 01/10/23 18:46 Freq: Status: Active Protocol: Document 01/24/23 11:26 LRN (Rec: 01/24/23 13:12 LRN [id number]) Current Condition History of Current Condition Onset Date 2-3 yrs ago Current Complaints Feels something sometimes and has small leakages going to bathroom. History of Current Condition 2-3 yrs ago had pap smear and was told she had a uterine prolapse. A few months ago did follow up and had a 2-3 prolapse of uterus, bladder, and rectocele. Would prefer to not have uterus removed. Doesn't feel it has worsened in the past 5 yrs. Does Kegel ex as well as abdominal exercises at home. States she sometimes leaks as she is heading to the bathroom after an urge and sometimes leaks with sneezing. Developmental History Developmental History 2 children, vaginal delivery with torn perineum both times with stitch repair. 2nd the stitches tore and was not repaired, so she reports a flap that sticks out . No urinary leakage with biking or hiking. Has back that limits activity. Pt reported PMH: meniscus tear bilaterally. Treatment Goals Patient/Caregiver Goals Pt goal is to 1) Get uterus to lift and strengthening ligs to hold it up, 2) lift rectal and bladder, 3) learn ex's and what to do to prevent surgery , 4) become comfortable at opening of anus. Personal Factors Other Personal Factors That May Effect Sciatic bilateral LE's, Therapy/Recovery hypothyroid. R handed, PT-OP-C Subjective Start: 01/10/23 18:46 Freq: Status: Active Protocol: Document 02/21/23 10:33 LRN (Rec: 02/21/23 11:18 LRN [id number]) OP-PT Subjective Patient Comments Patient Comments Seems like bladder is holding more, seems to be 6-12 oz, where before it was 4 oz, and is drinking more. PT-OP-I Pelvic Floor Start: 01/10/23 18:46 Freq: Status: Active Protocol: Document 01/31/23 14:07 LRN (Rec: 01/31/23 17:35 LRN [id number]) Pelvic Floor Assessment Prolapse Prolapse Comments Uterine prolapse felt. SEMG (uV) Baseline 2.7 Quick Contraction 14.2 10 Second Contraction 12.8 Recruitment Pattern Good Relaxation Fair Holding Poor/Slow Stability of Hold Poor/Slow SEMG Stability of Rest Fair Comments Pelvic Floor Comments Quick Flicks: 10 reps strength (uV's): avg work 14.2, avg rest 6.8. 20 reps strength (uV's): avg work 13.8, avg rest 6.1. Long Holds: 10 reps strength (uV's): avg work 12.8, avg rest 4.6. 20 reps strength (uV's): avg work 12.6, avg rest 3.6. PT-OP-J Posture/Palpation/Skin Start: 01/10/23 18:46 Freq: Status: Active Protocol: Document 01/24/23 11:26 LRN (Rec: 01/24/23 13:12 LRN [id number]) Posture Evaluation Position Standing T-Spine Posture Flattened L-Spine Posture Increased Lordosis Shoulder Posture Neutral,(L) Elevated Arm Posture (L) Internally Rotated,(R) Internally Rotated Pelvis Posture Anteriorly Tilted Knee Posture (L) Neutral,(R) Neutral Ankle/Foot Posture (L) Neutral,(R) Neutral Comments Posture Comments Decreased lordosis, slight anterior tilt PT-OP-K Range of Motion Start: 01/10/23 18:46 Freq: Status: Active Protocol: Document 01/24/23 11:26 LRN (Rec: 01/24/23 13:12 LRN [id number]) Lumbar Spine Range of Motion Lumbar Spine Active Degrees Testing Position Standing Flexion 115 Extension 30 Rotation Left 50 Rotation Right 50 Lateral Flexion Left 18 Lateral Flexion Right 15 Comments Lumbar ROM: Trunk Flexion is 115 deg?s with 83 deg?s hip flexion, Trunk extension is 30 deg?s with 10 deg?s hip extension Scoliosis in mid back upper curve apex to L, lower curve apex to R. Hip Goniometric Range of Motion Hip Right Passive Testing Position Supine Abduction 50 Internal Rotation 45 External Rotation 75 Left Passive Hip ROM WFL Yes Testing Position Supine Abduction 50 Internal Rotation 35 External Rotation 70 PT-OP-M Strength Start: 01/10/23 18:46 Freq: Status: Active Protocol: Document 01/24/23 11:26 LRN (Rec: 01/24/23 13:12 LRN [id number]) Trunk Strength Trunk Manual Muscle Testing Core Stabilization Not able to maintain core stab with MMT of R hip flex, unstable with hip AB/AD, L hip Ext. Hip Strength Hip Manual Muscle Testing Right Flexion (L2) 5 Normal Extension (S1) 3 Fair Abduction 5 Normal Adduction 5 Normal External Rotation 3+ Fair+ Internal Rotation 3+ Fair+ Comments Pain in lower R gluteals. Left Flexion (L2) 5 Normal Extension (S1) 5 Normal Abduction 5 Normal Adduction 5 Normal External Rotation 3+ Fair+ Internal Rotation 3 Fair PT-OP-Q Treatments Start: 01/10/23 18:46 Freq: Status: Active Protocol: Document 02/21/23 10:33 LRN (Rec: 02/21/23 11:18 LRN [id number]) Therapeutic Exercises Supine Exercises Sit<>Supine Supine Exercise Name Transfer training review for proper coordination of breathwork and PF contr Reps/Minutes 8' Comments Discussion needed for physiological reason for breathwork with transfer. TA tightening vs Rectus Supine Exercise Name On wedge PF Quick Flicks/Long holds with TA vs Rectus tightening Reps/Minutes 15' , 8 reps head lift = 10 secs. Comments Educ done at length throughout ex for awareness coordinating breath/PF/ex PF/LE roll in/out Supine Exercise Name On Wedge: PF/LE roll in/out Reps/Minutes 8' Comments Cuining for breathing and PF donnie. PF contraction Supine Exercise Name On Wedge: PF contractions Reps/Minutes 2' Other Exercises Transfer training Other Exercise Name Transfer coordinating with breath work and PF contraction Self-Care/Home Management Treatment Education Patient Education Home Exercise Program Other Education Educated pt in Bladder retraining program with discussion of use (bladder retraining, preventing urinary leakage). Review of vulvar and perineal care handouts. Pt had no concerns. Activities Self-Care/Home Management Activities Issued & reviewed HEP: PF contractions with LE roll in/ out. PT-OP-T Assessment and Plan Start: 01/10/23 18:46 Freq: Status: Active Protocol: Document 02/21/23 10:33 LRN (Rec: 02/21/23 11:18 LRN [id number]) Physical Therapy Assessment Goals Four Impairment Discomfort in anal region. Safety Supervisor Goal (LTG) Pt will become comfortable at opening of anus. LTG Duration 04/24/23 Three Impairment Pt is not able to perform a PF contraction in the absence of abdominal/glut Short Term Goal (STG) Pt will be aware of the sensation of a proper PF contraction. STG Duration 02/15/23 Safety Supervisor Goal (LTG) Pt will be able to isolate a PF contraction with a rectal and bladder lift, without overuse of the outer abdominal , gluteal, and hip AD muscles . LTG Duration 04/24/23 Two Impairment PF weakness with urinary leakage with an urge and stress. Short Term Goal (STG) Pt will be educated in urinary delay technique. STG Duration 02/01/23 (02/21/23: MET GOAL) Penitentiary Goal (LTG) Pt will demonstrate improved PF strength per EMG biofeedback. LTG Duration 04/24/23 One Impairment Lacks appropriate self care HEP. Impairment PUF score 3. Short Term Goal (STG) Education in proper methods for transfer with coordination of breathing, PF contractions , and proper vulvar/genital care. 02/14/23: Educated in pt transfers with coordination of breathing and PF contractions . Issued handout for proper vulvar/genital care. 02/21/23: Reviewed coordination of breathing/PF contractions with transfers, and proper vulvar/genital care. STG Duration 02/01/23 02/21/23: MET GOAL. Penitentiary Goal (LTG) Pt will be independent with a self care HEP of PF/core strengthening and hip ROM exercises to work towards surgery prevention. 02/14/23: I/S pt in transfers with coordination of breathing and PF strengthening (long holds and quick flicks). 02/21/23: HEP: PF/LE roll in- outs LTG Duration 04/24/23 progressed 02/21/23. Progress Towards Goals Progress Comments Met STG: #1 & #2. Progressed HEP. Assessment Summary Assessment Mixed urinary incontinence and cytocele grade 3, and rectocele grade 2 due to weak pelvic floor. Pt has no concerns regarding vulvar and perineal care. Pt appears to be urinating almost every 2 hrs and is voiding more volume than before. Physical Therapy Plan Frequency and Duration Frequency of Treatment 1x/Week Plan of Care Start Date 01/24/23 Plan of Care End Date 04/24/23 Next Visit Focus/Plan Next Note Type Treatment Note Next Visit Plan Review if needed Urinary urge technique with handout issued. EMG Biofeedback for PF Long Hold strengthening improved relaxation tone. Discuss different pads and usage (urine vs menstrual). Add hip stretches. Possible need for Sacral balancing. Strengthen PF long holds and Quick Flicks resting tone ( decrease).
--- NOTE | 2023-02-28 18:41 | PT.OTN ---
Current Diagnoses Constipation, unspecified (02/28/23) Stiffness of unspecified hip, not elsewhere classified (02/28/23) Sciatica, unspecified side (02/28/23) Muscle weakness (generalized) (02/28/23) Stress incontinence (female) (male) (02/28/23) Urge incontinence (02/28/23) Other female genital prolapse (02/28/23) Other reduced mobility (02/28/23) Physical Therapy Treatment Note PT-OP-A Visit Information Start: 01/10/23 18:46 Freq: Status: Active Protocol: Document 02/28/23 10:33 LRN (Rec: 02/28/23 11:20 LRN [id number]) Out-Patient Physical Therapy Visit Information Visit Information Visit Type Treatment Note Visit Start Time 10:33 Visit Stop Time 11:20 Total Visit Minutes 47 Visit Number 6 Evaluation Information Evaluation Date 02/07/23 Precautions Precautions Bilateral LE Sciatic pain PT-OP-B Current Condition Start: 01/10/23 18:46 Freq: Status: Active Protocol: Document 01/24/23 11:26 LRN (Rec: 01/24/23 13:12 LRN [id number]) Current Condition History of Current Condition Onset Date 2-3 yrs ago Current Complaints Feels something sometimes and has small leakages going to bathroom. History of Current Condition 2-3 yrs ago had pap smear and was told she had a uterine prolapse. A few months ago did follow up and had a 2-3 prolapse of uterus, bladder, and rectocele. Would prefer to not have uterus removed. Doesn't feel it has worsened in the past 5 yrs. Does Kegel ex as well as abdominal exercises at home. States she sometimes leaks as she is heading to the bathroom after an urge and sometimes leaks with sneezing. Developmental History Developmental History 2 children, vaginal delivery with torn perineum both times with stitch repair. 2nd the stitches tore and was not repaired, so she reports a flap that sticks out . No urinary leakage with biking or hiking. Has back that limits activity. Pt reported PMH: meniscus tear bilaterally. Treatment Goals Patient/Caregiver Goals Pt goal is to 1) Get uterus to lift and strengthening ligs to hold it up, 2) lift rectal and bladder, 3) learn ex's and what to do to prevent surgery , 4) become comfortable at opening of anus. Personal Factors Other Personal Factors That May Effect Sciatic bilateral LE's, Therapy/Recovery hypothyroid. R handed, PT-OP-C Subjective Start: 01/10/23 18:46 Freq: Status: Active Protocol: Document 02/28/23 10:33 LRN (Rec: 02/28/23 11:20 LRN [id number]) OP-PT Subjective Patient Comments Patient Comments Pt reports she is having a lot to do with taking care of her parents. States she is concerned because she is no longer having BM daily. Reports doing more breathing. PT-OP-I Pelvic Floor Start: 01/10/23 18:46 Freq: Status: Active Protocol: Document 01/31/23 14:07 LRN (Rec: 01/31/23 17:35 LRN [id number]) Pelvic Floor Assessment Prolapse Prolapse Comments Uterine prolapse felt. SEMG (uV) Baseline 2.7 Quick Contraction 14.2 10 Second Contraction 12.8 Recruitment Pattern Good Relaxation Fair Holding Poor/Slow Stability of Hold Poor/Slow SEMG Stability of Rest Fair Comments Pelvic Floor Comments Quick Flicks: 10 reps strength (uV's): avg work 14.2, avg rest 6.8. 20 reps strength (uV's): avg work 13.8, avg rest 6.1. Long Holds: 10 reps strength (uV's): avg work 12.8, avg rest 4.6. 20 reps strength (uV's): avg work 12.6, avg rest 3.6. PT-OP-J Posture/Palpation/Skin Start: 01/10/23 18:46 Freq: Status: Active Protocol: Document 01/24/23 11:26 LRN (Rec: 01/24/23 13:12 LRN [id number]) Posture Evaluation Position Standing T-Spine Posture Flattened L-Spine Posture Increased Lordosis Shoulder Posture Neutral,(L) Elevated Arm Posture (L) Internally Rotated,(R) Internally Rotated Pelvis Posture Anteriorly Tilted Knee Posture (L) Neutral,(R) Neutral Ankle/Foot Posture (L) Neutral,(R) Neutral Comments Posture Comments Decreased lordosis, slight anterior tilt PT-OP-K Range of Motion Start: 01/10/23 18:46 Freq: Status: Active Protocol: Document 01/24/23 11:26 LRN (Rec: 01/24/23 13:12 LRN [id number]) Lumbar Spine Range of Motion Lumbar Spine Active Degrees Testing Position Standing Flexion 115 Extension 30 Rotation Left 50 Rotation Right 50 Lateral Flexion Left 18 Lateral Flexion Right 15 Comments Lumbar ROM: Trunk Flexion is 115 deg?s with 83 deg?s hip flexion, Trunk extension is 30 deg?s with 10 deg?s hip extension Scoliosis in mid back upper curve apex to L, lower curve apex to R. Hip Goniometric Range of Motion Hip Right Passive Testing Position Supine Abduction 50 Internal Rotation 45 External Rotation 75 Left Passive Hip ROM WFL Yes Testing Position Supine Abduction 50 Internal Rotation 35 External Rotation 70 PT-OP-M Strength Start: 01/10/23 18:46 Freq: Status: Active Protocol: Document 01/24/23 11:26 LRN (Rec: 01/24/23 13:12 LRN [id number]) Trunk Strength Trunk Manual Muscle Testing Core Stabilization Not able to maintain core stab with MMT of R hip flex, unstable with hip AB/AD, L hip Ext. Hip Strength Hip Manual Muscle Testing Right Flexion (L2) 5 Normal Extension (S1) 3 Fair Abduction 5 Normal Adduction 5 Normal External Rotation 3+ Fair+ Internal Rotation 3+ Fair+ Comments Pain in lower R gluteals. Left Flexion (L2) 5 Normal Extension (S1) 5 Normal Abduction 5 Normal Adduction 5 Normal External Rotation 3+ Fair+ Internal Rotation 3 Fair PT-OP-Q Treatments Start: 01/10/23 18:46 Freq: Status: Active Protocol: Document 02/28/23 10:33 LRN (Rec: 02/28/23 11:20 LRN [id number]) Therapeutic Exercises Supine Exercises Deep breathing Supine Exercise Name Review Reps/Minutes 2' Resting tone Supine Exercise Name PF resting on/off wedge. Equipment Used EMG Biofeedback Reps/Minutes 5' Comments 3.3 uV's (initial was 2.7 uV's ). Extra time for set up. Long Holds Supine Exercise Name Long Holds contractions with and w/o biofeedback Equipment Used EMG Biofeedback Reps/Minutes 13' Comments Extra time for training and use of visual feed back for PF contractions. Self-Care/Home Management Treatment Education Patient Education Home Exercise Program Other Education Discussed how to use Urinary delay technique to increase times between voids, but suggested that if the pt wants to decrease time between voids, then to do when less stress in personal life because it will require monitoring of voids/fluids/ timing. Activities Self-Care/Home Management Activities Discussed at length with pt her concerns over her family as well as fears of worsening of her symptoms of prolapse ( urinary and rectal) and how her concerns of a worsening rectal prolapse. Pt needed to be reassured that if she did not track her bladder diary so closely that it would not have a negative impact on outcome. Discussed the pt focus attention on making sure she coordinates her breathing and abdominal relaxation with exertion activities. Re-issued Bowel massage handout at pt request. PT-OP-T Assessment and Plan Start: 01/10/23 18:46 Freq: Status: Active Protocol: Document 02/28/23 10:33 LRN (Rec: 02/28/23 11:20 LRN [id number]) Physical Therapy Assessment Goals Three Impairment Pt is not able to perform a PF contraction in the absence of abdominal/glut Short Term Goal (STG) Pt will be aware of the sensation of a proper PF contraction. STG Duration 02/15/23 Crop And Soil Technician Goal (LTG) Pt will be able to isolate a PF contraction with a rectal and bladder lift, without overuse of the outer abdominal , gluteal, and hip AD muscles . LTG Duration 04/24/23 Two Impairment PF weakness with urinary leakage with an urge and stress. Short Term Goal (STG) Pt will be educated in urinary delay technique. STG Duration 02/01/23 (02/21/23: MET GOAL) Crop And Soil Technician Goal (LTG) Pt will demonstrate improved PF strength per EMG biofeedback. LTG Duration 04/24/23 One Impairment Lacks appropriate self care HEP. Impairment PUF score 3. Short Term Goal (STG) Education in proper methods for transfer with coordination of breathing, PF contractions , and proper vulvar/genital care. 02/14/23: Educated in pt transfers with coordination of breathing and PF contractions . Issued handout for proper vulvar/genital care. 02/21/23: Reviewed coordination of breathing/PF contractions with transfers, and proper vulvar/genital care. STG Duration 02/01/23 02/21/23: MET GOAL. Crop And Soil Technician Goal (LTG) Pt will be independent with a self care HEP of PF/core strengthening and hip ROM exercises to work towards surgery prevention. 02/14/23: I/S pt in transfers with coordination of breathing and PF strengthening (long holds and quick flicks). 02/21/23: HEP: PF/LE roll in- outs LTG Duration 04/24/23 progressed 02/21/23. Assessment Summary Assessment Pt has no questions regarding urinary delay technique. Pt appears to be under a lot of stress and is focusing on being accurate with her bladder diary, which is adding more stress. She appears to be having some difficulty coordinating breathwork during exercise activities, but appears to have been able to focus on doing a PF contraction during exercise. Abdominal tightness appears to be adding core pressure with exercise. Physical Therapy Plan Frequency and Duration Frequency of Treatment 1x/Week Plan of Care Start Date 01/24/23 Plan of Care End Date 04/24/23 Next Visit Focus/Plan Next Note Type Treatment Note Next Visit Plan Assess if pt able to isolate a PF contraction with a rectal and bladder lift, without overuse of the outer abdominal , gluteal, and hip AD muscles . EMG Biofeedback for PF awareness (not strengthening), and biofeedback for relaxaing resting tone. Discuss different pads and usage (urine vs menstrual). Add hip and LB stretches. Manual therapy to reduce abdominal tightness. Possible need for Sacral balancing. Strengthen PF long holds and Quick Flicks resting tone ( decrease).
--- NOTE | 2023-03-14 17:37 | PT.OTN ---
Current Diagnoses Constipation, unspecified (03/14/23) Stiffness of unspecified hip, not elsewhere classified (03/14/23) Sciatica, unspecified side (03/14/23) Muscle weakness (generalized) (03/14/23) Stress incontinence (female) (male) (03/14/23) Urge incontinence (03/14/23) Other female genital prolapse (03/14/23) Other reduced mobility (03/14/23) Physical Therapy Treatment Note PT-OP-A Visit Information Start: 01/10/23 18:46 Freq: Status: Active Protocol: Document 03/14/23 10:33 LRN (Rec: 03/14/23 11:32 LRN [id number]) Out-Patient Physical Therapy Visit Information Visit Information Visit Type Treatment Note Visit Start Time 10:33 Visit Stop Time 11:19 Total Visit Minutes 46 Visit Number 7 Evaluation Information Evaluation Date 02/07/23 Precautions Precautions Bilateral LE Sciatic pain PT-OP-B Current Condition Start: 01/10/23 18:46 Freq: Status: Active Protocol: Document 01/24/23 11:26 LRN (Rec: 01/24/23 13:12 LRN [id number]) Current Condition History of Current Condition Onset Date 2-3 yrs ago Current Complaints Feels something sometimes and has small leakages going to bathroom. History of Current Condition 2-3 yrs ago had pap smear and was told she had a uterine prolapse. A few months ago did follow up and had a 2-3 prolapse of uterus, bladder, and rectocele. Would prefer to not have uterus removed. Doesn't feel it has worsened in the past 5 yrs. Does Kegel ex as well as abdominal exercises at home. States she sometimes leaks as she is heading to the bathroom after an urge and sometimes leaks with sneezing. Developmental History Developmental History 2 children, vaginal delivery with torn perineum both times with stitch repair. 2nd the stitches tore and was not repaired, so she reports a flap that sticks out . No urinary leakage with biking or hiking. Has back that limits activity. Pt reported PMH: meniscus tear bilaterally. Treatment Goals Patient/Caregiver Goals Pt goal is to 1) Get uterus to lift and strengthening ligs to hold it up, 2) lift rectal and bladder, 3) learn ex's and what to do to prevent surgery , 4) become comfortable at opening of anus. Personal Factors Other Personal Factors That May Effect Sciatic bilateral LE's, Therapy/Recovery hypothyroid. R handed, PT-OP-C Subjective Start: 01/10/23 18:46 Freq: Status: Active Protocol: Document 03/14/23 10:33 LRN (Rec: 03/14/23 17:28 LRN [id number]) OP-PT Subjective Patient Comments Patient Comments Pt reports unable to attend therapy due to father passing away. Pt reports she has tried to do ex's but has not been able to be consistent. PT-OP-I Pelvic Floor Start: 01/10/23 18:46 Freq: Status: Active Protocol: Document 03/14/23 10:33 LRN (Rec: 03/14/23 11:32 LRN [id number]) Pelvic Floor Assessment SEMG (uV) Baseline 2.5 Quick Contraction 12.6 Recruitment Pattern Good Relaxation Fair Holding Good Stability of Hold Fair SEMG Stability of Rest Fair PT-OP-J Posture/Palpation/Skin Start: 01/10/23 18:46 Freq: Status: Active Protocol: Document 01/24/23 11:26 LRN (Rec: 01/24/23 13:12 LRN [id number]) Posture Evaluation Position Standing T-Spine Posture Flattened L-Spine Posture Increased Lordosis Shoulder Posture Neutral,(L) Elevated Arm Posture (L) Internally Rotated,(R) Internally Rotated Pelvis Posture Anteriorly Tilted Knee Posture (L) Neutral,(R) Neutral Ankle/Foot Posture (L) Neutral,(R) Neutral Comments Posture Comments Decreased lordosis, slight anterior tilt PT-OP-K Range of Motion Start: 01/10/23 18:46 Freq: Status: Active Protocol: Document 01/24/23 11:26 LRN (Rec: 01/24/23 13:12 LRN [id number]) Lumbar Spine Range of Motion Lumbar Spine Active Degrees Testing Position Standing Flexion 115 Extension 30 Rotation Left 50 Rotation Right 50 Lateral Flexion Left 18 Lateral Flexion Right 15 Comments Lumbar ROM: Trunk Flexion is 115 deg?s with 83 deg?s hip flexion, Trunk extension is 30 deg?s with 10 deg?s hip extension Scoliosis in mid back upper curve apex to L, lower curve apex to R. Hip Goniometric Range of Motion Hip Right Passive Testing Position Supine Abduction 50 Internal Rotation 45 External Rotation 75 Left Passive Hip ROM WFL Yes Testing Position Supine Abduction 50 Internal Rotation 35 External Rotation 70 PT-OP-M Strength Start: 01/10/23 18:46 Freq: Status: Active Protocol: Document 01/24/23 11:26 LRN (Rec: 01/24/23 13:12 LRN [id number]) Trunk Strength Trunk Manual Muscle Testing Core Stabilization Not able to maintain core stab with MMT of R hip flex, unstable with hip AB/AD, L hip Ext. Hip Strength Hip Manual Muscle Testing Right Flexion (L2) 5 Normal Extension (S1) 3 Fair Abduction 5 Normal Adduction 5 Normal External Rotation 3+ Fair+ Internal Rotation 3+ Fair+ Comments Pain in lower R gluteals. Left Flexion (L2) 5 Normal Extension (S1) 5 Normal Abduction 5 Normal Adduction 5 Normal External Rotation 3+ Fair+ Internal Rotation 3 Fair PT-OP-Q Treatments Start: 01/10/23 18:46 Freq: Status: Active Protocol: Document 03/14/23 10:33 LRN (Rec: 03/14/23 11:32 LRN [id number]) Therapeutic Exercises Supine Exercises Resting tone Supine Exercise Name PF resting off wedge. Equipment Used EMG Biofeedback Reps/Minutes 5' Comments 2.5 uV's (initial was 2.7 uV's ). Extra time for set up, see PF assess abov Bowel/ILU massage Supine Exercise Name Bowel/ILU massage Reps/Minutes 15' Comments Extra time taken for educ and cuing for direction, start/ stop locations Long Holds Supine Exercise Name Long Holds contractions with and w/o biofeedback Equipment Used EMG Biofeedback Reps/Minutes 14' Comments Extra time for ex performance (see PF assessment above). Quick Flicks Supine Exercise Name Quick Flicks Equipment Used vEMG electrode Reps/Minutes 2 sec/5 sec rest Comments 10 & 20 rep contractions (see PF assessment above) PT-OP-T Assessment and Plan Start: 01/10/23 18:46 Freq: Status: Active Protocol: Document 03/14/23 10:33 LRN (Rec: 03/14/23 11:32 LRN [id number]) Physical Therapy Assessment Goals Four Impairment Discomfort in anal region. Control Room Technician Goal (LTG) Pt will become comfortable at opening of anus. LTG Duration 04/24/23 Three Impairment Pt is not able to perform a PF contraction in the absence of abdominal/glut Short Term Goal (STG) Pt will be aware of the sensation of a proper PF contraction. STG Duration 02/15/23 Control Room Technician Goal (LTG) Pt will be able to isolate a PF contraction with a rectal and bladder lift, without overuse of the outer abdominal , gluteal, and hip AD muscles . LTG Duration 04/24/23 Two Impairment PF weakness with urinary leakage with an urge and stress. Short Term Goal (STG) Pt will be educated in urinary delay technique. STG Duration 02/01/23 (02/21/23: MET GOAL) Control Room Technician Goal (LTG) Pt will demonstrate improved PF strength per EMG biofeedback. LTG Duration 04/24/23 One Impairment Lacks appropriate self care HEP. Impairment PUF score 3. Short Term Goal (STG) Education in proper methods for transfer with coordination of breathing, PF contractions , and proper vulvar/genital care. 02/14/23: Educated in pt transfers with coordination of breathing and PF contractions . Issued handout for proper vulvar/genital care. 02/21/23: Reviewed coordination of breathing/PF contractions with transfers, and proper vulvar/genital care. STG Duration 02/01/23 02/21/23: MET GOAL. Control Room Technician Goal (LTG) Pt will be independent with a self care HEP of PF/core strengthening and hip ROM exercises to work towards surgery prevention. 02/14/23: I/S pt in transfers with coordination of breathing and PF strengthening (long holds and quick flicks). 02/21/23: HEP: PF/LE roll in- outs LTG Duration 04/24/23 progressed 02/21/23. Assessment Summary Assessment Mixed urinary incontinence and cytocele grade 3, and rectocele grade 2 due to weak pelvic floor and poor pressure management. Pt returns after missing a visit due to of her father. Much time was spent with education/training on Bowel massage for HEP, at pt request. Pt demonstrated poor recall of proper breathwork coordination with transfers and weakness of the PF strength with Quick and Long hold contractions. She shows some improvement in stability of long holding, probably because she was consistent with long hold PF ex's during her break. Physical Therapy Plan Frequency and Duration Frequency of Treatment 1x/Week Plan of Care Start Date 01/24/23 Plan of Care End Date 04/24/23 Next Visit Focus/Plan Next Note Type Treatment Note Next Visit Plan Pt is on waitlist for one more scheduled vist, possible final appt before she has to concentrate on personal activities of moving her mother. Re-assess progress for possible cont of therapy, & assess if pt able to isolate a PF contraction with a rectal and bladder lift, without overuse of the outer abdominal, gluteal, and hip AD muscles. EMG Biofeedback for PF awareness (not strengthening), and biofeedback for relaxing resting tone. Discuss different pads and usage (urine vs menstrual). Add hip and LB stretches. Manual therapy to reduce abdominal tightness. Possible need for Sacral balancing. Strengthen PF long holds and Quick Flicks resting tone ( decrease).
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
--- NOTE | 2023-04-18 18:39 | PT.OTN ---
Current Diagnoses Constipation, unspecified (04/18/23) Stiffness of unspecified hip, not elsewhere classified (04/18/23) Sciatica, unspecified side (04/18/23) Muscle weakness (generalized) (04/18/23) Stress incontinence (female) (male) (04/18/23) Urge incontinence (04/18/23) Other female genital prolapse (04/18/23) Other reduced mobility (04/18/23) Physical Therapy Treatment Note PT-OP-A Visit Information Start: 01/10/23 18:46 Freq: Status: Active Protocol: Document 04/18/23 11:21 LRN (Rec: 04/18/23 12:32 LRN [id number]) Out-Patient Physical Therapy Visit Information Visit Information Visit Type Treatment Note Visit Start Time 11:21 Visit Stop Time 12:08 Total Visit Minutes 47 Visit Number 9 Evaluation Information Evaluation Date 02/07/23 Precautions Precautions Bilateral LE Sciatic pain PT-OP-B Current Condition Start: 01/10/23 18:46 Freq: Status: Active Protocol: Document 01/24/23 11:26 LRN (Rec: 01/24/23 13:12 LRN [id number]) Current Condition History of Current Condition Onset Date 2-3 yrs ago Current Complaints Feels something sometimes and has small leakages going to bathroom. History of Current Condition 2-3 yrs ago had pap smear and was told she had a uterine prolapse. A few months ago did follow up and had a 2-3 prolapse of uterus, bladder, and rectocele. Would prefer to not have uterus removed. Doesn't feel it has worsened in the past 5 yrs. Does Kegel ex as well as abdominal exercises at home. States she sometimes leaks as she is heading to the bathroom after an urge and sometimes leaks with sneezing. Developmental History Developmental History 2 children, vaginal delivery with torn perineum both times with stitch repair. 2nd the stitches tore and was not repaired, so she reports a flap that sticks out . No urinary leakage with biking or hiking. Has back that limits activity. Pt reported PMH: meniscus tear bilaterally. Treatment Goals Patient/Caregiver Goals Pt goal is to 1) Get uterus to lift and strengthening ligs to hold it up, 2) lift rectal and bladder, 3) learn ex's and what to do to prevent surgery , 4) become comfortable at opening of anus. Personal Factors Other Personal Factors That May Effect Sciatic bilateral LE's, Therapy/Recovery hypothyroid. R handed, PT-OP-C Subjective Start: 01/10/23 18:46 Freq: Status: Active Protocol: Document 04/18/23 11:21 LRN (Rec: 04/18/23 12:32 LRN [id number]) OP-PT Subjective Patient Comments Patient Comments Feels like she has a fibroid. Still having rabbit poo. Doesn't feel like she is completely voiding, even with drinking more fluids and with prune juice. Sometimes a successful void. PT-OP-I Pelvic Floor Start: 01/10/23 18:46 Freq: Status: Active Protocol: Document 03/21/23 10:34 LRN (Rec: 03/21/23 11:24 LRN [id number]) Pelvic Floor Assessment Pelvic Clock Pelvic Clock Other No tenderness noted. Prolapse Cystocele Grade 1 Prolapse Comments Very mild prolapse noted. Perineal Descent Resting Absent Bearing Absent SEMG (uV) Baseline 2.7 10 Second Contraction 12.2 PT-OP-J Posture/Palpation/Skin Start: 01/10/23 18:46 Freq: Status: Active Protocol: Document 01/24/23 11:26 LRN (Rec: 01/24/23 13:12 LRN [id number]) Posture Evaluation Position Standing T-Spine Posture Flattened L-Spine Posture Increased Lordosis Shoulder Posture Neutral,(L) Elevated Arm Posture (L) Internally Rotated,(R) Internally Rotated Pelvis Posture Anteriorly Tilted Knee Posture (L) Neutral,(R) Neutral Ankle/Foot Posture (L) Neutral,(R) Neutral Comments Posture Comments Decreased lordosis, slight anterior tilt PT-OP-K Range of Motion Start: 01/10/23 18:46 Freq: Status: Active Protocol: Document 01/24/23 11:26 LRN (Rec: 01/24/23 13:12 LRN [id number]) Lumbar Spine Range of Motion Lumbar Spine Active Degrees Testing Position Standing Flexion 115 Extension 30 Rotation Left 50 Rotation Right 50 Lateral Flexion Left 18 Lateral Flexion Right 15 Comments Lumbar ROM: Trunk Flexion is 115 deg?s with 83 deg?s hip flexion, Trunk extension is 30 deg?s with 10 deg?s hip extension Scoliosis in mid back upper curve apex to L, lower curve apex to R. Hip Goniometric Range of Motion Hip Right Passive Testing Position Supine Abduction 50 Internal Rotation 45 External Rotation 75 Left Passive Hip ROM WFL Yes Testing Position Supine Abduction 50 Internal Rotation 35 External Rotation 70 PT-OP-M Strength Start: 01/10/23 18:46 Freq: Status: Active Protocol: Document 01/24/23 11:26 LRN (Rec: 01/24/23 13:12 LRN [id number]) Trunk Strength Trunk Manual Muscle Testing Core Stabilization Not able to maintain core stab with MMT of R hip flex, unstable with hip AB/AD, L hip Ext. Hip Strength Hip Manual Muscle Testing Right Flexion (L2) 5 Normal Extension (S1) 3 Fair Abduction 5 Normal Adduction 5 Normal External Rotation 3+ Fair+ Internal Rotation 3+ Fair+ Comments Pain in lower R gluteals. Left Flexion (L2) 5 Normal Extension (S1) 5 Normal Abduction 5 Normal Adduction 5 Normal External Rotation 3+ Fair+ Internal Rotation 3 Fair PT-OP-Q Treatments Start: 01/10/23 18:46 Freq: Status: Active Protocol: Document 04/18/23 11:21 LRN (Rec: 04/18/23 12:32 LRN [id number]) Manual Therapy Treatment Soft Tissue Mobilization Abdomen Body Location Lower abdomen (bladder/uterus, urachus) Mobilization Type Sustained Pressure,Trigger Point Release Intensity/Depth Superficial to moderate Body Position Hooklying Internal Posterior PF Body Location Live Iliococcygeus and pubococcygeus ms Mobilization Type Sustained Pressure Intensity/Depth Superficial to moderate Body Position Hooklying External Posterior PF Body Location Anal sphincter Mobilization Type Strumming,Sustained Pressure Body Position Hooklying PT-OP-T Assessment and Plan Start: 01/10/23 18:46 Freq: Status: Active Protocol: Document 04/18/23 11:21 LRN (Rec: 04/18/23 12:32 LRN [id number]) Physical Therapy Assessment Rehab Potential Rehabilitation Potential Good Evaluation Complexity Number of Personal Factors/Comorbidities 1-2 Number of Body Systems Impaired 4 or More Clinical Presentation at Evaluation Evolving Impairments Impairments Activity Tolerance,Functional Mobility,Pain,ROM,Soft Tissue Mobility,Strength,Transfers Goals Four Impairment Discomfort in anal region. Atomic Physics Teacher Goal (LTG) Pt will become comfortable at opening of anus. 03/21/23: Uncomfortable in anal region. 04/18/23: No pain at anus opening LTG Duration 04/24/23 (04/18/23: MET GOAL) Three Impairment Pt is not able to perform a PF contraction in the absence of abdominal/glut Short Term Goal (STG) Pt will be aware of the sensation of a proper PF contraction. STG Duration 06/02/23 Atomic Physics Teacher Goal (LTG) Pt will be able to isolate a PF contraction with a rectal and bladder lift, without overuse of the outer abdominal , gluteal, and hip AD muscles. 04/18/23: Pt able to perform PF contraction in isolation of the gluteal & hip AD ms. TA tightens mildly. LTG Duration 07/17/23 progressed 04/18/23 Two Impairment PF weakness with urinary leakage with an urge and stress. Short Term Goal (STG) Pt will be educated in urinary delay technique. STG Duration 02/01/23 (02/21/23: MET GOAL) Atomic Physics Teacher Goal (LTG) Pt will demonstrate improved PF strength per EMG biofeedback. LTG Duration 07/17/23 One Impairment Lacks appropriate self care HEP. Impairment PUF score 3. Short Term Goal (STG) Education in proper methods for transfer with coordination of breathing, PF contractions , and proper vulvar/genital care. 02/14/23: Educated in pt transfers with coordination of breathing and PF contractions . Issued handout for proper vulvar/genital care. 02/21/23: Reviewed coordination of breathing/PF contractions with transfers, and proper vulvar/genital care. STG Duration 02/01/23 02/21/23: MET GOAL. Nursing Home Goal (LTG) Pt will be independent with a self care HEP of PF/core strengthening and hip ROM exercises to work towards surgery prevention. 02/14/23: I/S pt in transfers with coordination of breathing and PF strengthening (long holds and quick flicks). 02/21/23: HEP: PF/LE roll in- outs LTG Duration 07/17/23 progressed 02/21/23. Progress Towards Goals Progress Comments Goal #4 MET. LTG #3 Progressed. STG # 1 & #2 MET. LTG #1 HEP being progressed. Assessment Summary Assessment Pt initially seen for mixed urinary incontinence, noted with cytocele grade 3, and rectocele grade 2 due to weak pelvic floor and drop of her uterus, as palpated with digitial insertion in vaginal canal. Pt is able to perform PF contraction in isolation of the hip AD & Gluteal ms, but TA tightens mildly. She has improved her fluid intake and she now has occasional normal BM's. She is reporting continued type 1 & 2 BM's. Since last session, posterior PF MFR appears to have relaxed anal region with no c/o anal pain on palpation. Today I was able to reduce her L lower abdominal pain with manual treatment and relaxation of her PF ms and noted possible restriction with ileocecal valve. The pt has been slow to progress due to soft tissue restriction and involvement due to L sciatic pain. The pt also has had social stressors involving her mother that prevents her from being consistent with therapy; therefore therapy visits are sporadic. The pt appears to have visceral restrictions that would benefit from further skilled physical therapy, along with further therapy to address the above stated goals. Physical Therapy Plan Frequency and Duration Frequency of Treatment Sporacic or 1x/week Plan of Care Start Date 04/18/23 Plan of Care End Date 07/17/23 Therapeutic Interventions Therapeutic Interventions Home Exercise Program,Joint Mobilizations,Manual Therapy, Neuromuscular Re-education, Patient/Caregiver Education, Self-Care/Home Management,Soft Tissue Mobilization, Therapeutic Activities, Therapeutic Exercises Modalities Biofeedback,Electric Stimulation Next Visit Focus/Plan Next Note Type Treatment Note Next Visit Plan Pt to continue sporadically due to personal activities involving her mother. Training for isolating a PF contraction with a rectal and bladder lift, without overuse of the outer abdominal. Address Sciatic nerve: Add hip and LB stretches. Continue manual therapy to reduce abdominal tightness ( ileocecal valve, posterior peritoneum). Possible need for Sacral balancing. EMG Biofeedback for relaxing resting tone (not strengthening). Discuss different pads and usage (urine vs menstrual).
--- NOTE | 2023-05-24 14:46 | PT.OTN ---
Current Diagnoses Constipation, unspecified (05/24/23) Stiffness of unspecified hip, not elsewhere classified (05/24/23) Sciatica, unspecified side (05/24/23) Muscle weakness (generalized) (05/24/23) Stress incontinence (female) (male) (05/24/23) Urge incontinence (05/24/23) Other female genital prolapse (05/24/23) Other reduced mobility (05/24/23) Physical Therapy Treatment Note PT-OP-A Visit Information Start: 01/10/23 18:46 Freq: Status: Active Protocol: Document 05/24/23 12:33 LRN (Rec: 05/24/23 13:19 LRN [id number]) Out-Patient Physical Therapy Visit Information Visit Information Visit Type Treatment Note Visit Note 1 after PN Visit Start Time 12:33 Visit Stop Time 13:15 Total Visit Minutes 42 Visit Number 10 Evaluation Information Evaluation Date 02/07/23 Precautions Precautions Bilateral LE Sciatic pain PT-OP-B Current Condition Start: 01/10/23 18:46 Freq: Status: Active Protocol: Document 01/24/23 11:26 LRN (Rec: 01/24/23 13:12 LRN [id number]) Current Condition History of Current Condition Onset Date 2-3 yrs ago Current Complaints Feels something sometimes and has small leakages going to bathroom. History of Current Condition 2-3 yrs ago had pap smear and was told she had a uterine prolapse. A few months ago did follow up and had a 2-3 prolapse of uterus, bladder, and rectocele. Would prefer to not have uterus removed. Doesn't feel it has worsened in the past 5 yrs. Does Kegel ex as well as abdominal exercises at home. States she sometimes leaks as she is heading to the bathroom after an urge and sometimes leaks with sneezing. Developmental History Developmental History 2 children, vaginal delivery with torn perineum both times with stitch repair. 2nd the stitches tore and was not repaired, so she reports a flap that sticks out . No urinary leakage with biking or hiking. Has back that limits activity. Pt reported PMH: meniscus tear bilaterally. Treatment Goals Patient/Caregiver Goals Pt goal is to 1) Get uterus to lift and strengthening ligs to hold it up, 2) lift rectal and bladder, 3) learn ex's and what to do to prevent surgery , 4) become comfortable at opening of anus. Personal Factors Other Personal Factors That May Effect Sciatic bilateral LE's, Therapy/Recovery hypothyroid. R handed, PT-OP-C Subjective Start: 01/10/23 18:46 Freq: Status: Active Protocol: Document 05/24/23 12:33 LRN (Rec: 05/24/23 13:19 LRN [id number]) OP-PT Subjective Patient Comments Patient Comments States surgeon thought she was better and thought she didn't need surgery. PT-OP-I Pelvic Floor Start: 01/10/23 18:46 Freq: Status: Active Protocol: Document 03/21/23 10:34 LRN (Rec: 03/21/23 11:24 LRN [id number]) Pelvic Floor Assessment Pelvic Clock Pelvic Clock Other No tenderness noted. Prolapse Cystocele Grade 1 Prolapse Comments Very mild prolapse noted. Perineal Descent Resting Absent Bearing Absent SEMG (uV) Baseline 2.7 10 Second Contraction 12.2 PT-OP-J Posture/Palpation/Skin Start: 01/10/23 18:46 Freq: Status: Active Protocol: Document 01/24/23 11:26 LRN (Rec: 01/24/23 13:12 LRN [id number]) Posture Evaluation Position Standing T-Spine Posture Flattened L-Spine Posture Increased Lordosis Shoulder Posture Neutral,(L) Elevated Arm Posture (L) Internally Rotated,(R) Internally Rotated Pelvis Posture Anteriorly Tilted Knee Posture (L) Neutral,(R) Neutral Ankle/Foot Posture (L) Neutral,(R) Neutral Comments Posture Comments Decreased lordosis, slight anterior tilt PT-OP-K Range of Motion Start: 01/10/23 18:46 Freq: Status: Active Protocol: Document 01/24/23 11:26 LRN (Rec: 01/24/23 13:12 LRN [id number]) Lumbar Spine Range of Motion Lumbar Spine Active Degrees Testing Position Standing Flexion 115 Extension 30 Rotation Left 50 Rotation Right 50 Lateral Flexion Left 18 Lateral Flexion Right 15 Comments Lumbar ROM: Trunk Flexion is 115 deg?s with 83 deg?s hip flexion, Trunk extension is 30 deg?s with 10 deg?s hip extension Scoliosis in mid back upper curve apex to L, lower curve apex to R. Hip Goniometric Range of Motion Hip Right Passive Testing Position Supine Abduction 50 Internal Rotation 45 External Rotation 75 Left Passive Hip ROM WFL Yes Testing Position Supine Abduction 50 Internal Rotation 35 External Rotation 70 PT-OP-M Strength Start: 01/10/23 18:46 Freq: Status: Active Protocol: Document 01/24/23 11:26 LRN (Rec: 01/24/23 13:12 LRN [id number]) Trunk Strength Trunk Manual Muscle Testing Core Stabilization Not able to maintain core stab with MMT of R hip flex, unstable with hip AB/AD, L hip Ext. Hip Strength Hip Manual Muscle Testing Right Flexion (L2) 5 Normal Extension (S1) 3 Fair Abduction 5 Normal Adduction 5 Normal External Rotation 3+ Fair+ Internal Rotation 3+ Fair+ Comments Pain in lower R gluteals. Left Flexion (L2) 5 Normal Extension (S1) 5 Normal Abduction 5 Normal Adduction 5 Normal External Rotation 3+ Fair+ Internal Rotation 3 Fair PT-OP-Q Treatments Start: 01/10/23 18:46 Freq: Status: Active Protocol: Document 05/24/23 12:33 LRN (Rec: 05/24/23 13:19 LRN [id number]) Manual Therapy Treatment Manual Techniques Sacral Balancing Type Sacral Balancing Body Location Sacrum Body Position Prone & Sup Comments Decreased mob of L sacral sulcus infer & R PA, L Ischial Tub, 6 pt balancing Pubic balancing PT-OP-T Assessment and Plan Start: 01/10/23 18:46 Freq: Status: Active Protocol: Document 05/24/23 12:33 LRN (Rec: 05/24/23 13:19 LRN [id number]) Physical Therapy Assessment Goals Four Impairment Discomfort in anal region. Trim Carpenter Goal (LTG) Pt will become comfortable at opening of anus. 03/21/23: Uncomfortable in anal region. 04/18/23: No pain at anus opening LTG Duration 04/24/23 (04/18/23: MET GOAL) Three Impairment Pt is not able to perform a PF contraction in the absence of abdominal/glut Short Term Goal (STG) Pt will be aware of the sensation of a proper PF contraction. STG Duration 06/02/23 Care Home Goal (LTG) Pt will be able to isolate a PF contraction with a rectal and bladder lift, without overuse of the outer abdominal , gluteal, and hip AD muscles. 04/18/23: Pt able to perform PF contraction in isolation of the gluteal & hip AD ms. TA tightens mildly. LTG Duration 07/17/23 progressed 04/18/23 Two Impairment PF weakness with urinary leakage with an urge and stress. Short Term Goal (STG) Pt will be educated in urinary delay technique. STG Duration 02/01/23 (02/21/23: MET GOAL) Care Home Goal (LTG) Pt will demonstrate improved PF strength per EMG biofeedback. LTG Duration 07/17/23 One Impairment Lacks appropriate self care HEP. Impairment PUF score 3. Short Term Goal (STG) Education in proper methods for transfer with coordination of breathing, PF contractions , and proper vulvar/genital care. 02/14/23: Educated in pt transfers with coordination of breathing and PF contractions . Issued handout for proper vulvar/genital care. 02/21/23: Reviewed coordination of breathing/PF contractions with transfers, and proper vulvar/genital care. STG Duration 02/01/23 02/21/23: MET GOAL. Care Home Goal (LTG) Pt will be independent with a self care HEP of PF/core strengthening and hip ROM exercises to work towards surgery prevention. 02/14/23: I/S pt in transfers with coordination of breathing and PF strengthening (long holds and quick flicks). 02/21/23: HEP: PF/LE roll in- outs LTG Duration 07/17/23 progressed 02/21/23. Assessment Summary Assessment Pt with mixed urinary incontinence and graded previously on 02/14/23, cytocele grade 3, and rectocele grade 2 due to weak pelvic floor. After manual treatment, pt demonstrated improved sacral symmetry and hip muscle tension symmetry of R side. Treatment was needed to decrease sciatic symptoms which appears to be hindering her ability to have good awareness of her PF. Pt doesn 't have a falling out feeling . Physical Therapy Plan Frequency and Duration Frequency of Treatment Sporacic or 1x/week Plan of Care Start Date 04/18/23 Plan of Care End Date 07/17/23 Therapeutic Interventions Therapeutic Interventions Home Exercise Program,Joint Mobilizations,Manual Therapy, Neuromuscular Re-education, Patient/Caregiver Education, Self-Care/Home Management,Soft Tissue Mobilization, Therapeutic Activities, Therapeutic Exercises Modalities Biofeedback,Electric Stimulation Next Visit Focus/Plan Next Note Type Treatment Note Next Visit Plan Assess response to sacral balancing and address Sciatic nerve: Add hip and LB stretches. Pt to continue sporadically due to personal activities involving her mother. Training for isolating a PF contraction getting a rectal and bladder lift sensation, without overuse of the outer abdominal. Continue manual therapy to reduce abdominal tightness ( ileocecal valve, posterior peritoneum). EMG Biofeedback for relaxing resting tone (not strengthening). Discuss different pads and usage (urine vs menstrual).
--- NOTE | 2023-06-03 15:50 | PT-OP ANOTE ---
Per phone, pt was notified of missed appt and reviewed next appt will be 06/10/23. Pt reports she felt better after the last session, but went mountain biking and hurts again. States she can't give up biking because it helps her mental health. Pt commits to attending next session.
--- NOTE | 2023-06-25 14:57 | PT.OTN ---
Current Diagnoses Constipation, unspecified (06/25/23) Stiffness of unspecified hip, not elsewhere classified (06/25/23) Sciatica, unspecified side (06/25/23) Muscle weakness (generalized) (06/25/23) Stress incontinence (female) (male) (06/25/23) Urge incontinence (06/25/23) Other female genital prolapse (06/25/23) Other reduced mobility (06/25/23) Physical Therapy Treatment Note PT-OP-A Visit Information Start: 01/10/23 18:46 Freq: Status: Active Protocol: Document 06/25/23 09:38 LRN (Rec: 06/25/23 10:31 LRN [id number]) Out-Patient Physical Therapy Visit Information Visit Information Visit Type Treatment Note Visit Note 2 after PN 11 visits + [employer] visit = 12 visits Visit Start Time 09:38 Visit Stop Time 10:20 Total Visit Minutes 42 Visit Number 10/19 Evaluation Information Evaluation Date 02/07/23 Precautions Precautions Bilateral LE Sciatic pain PT-OP-B Current Condition Start: 01/10/23 18:46 Freq: Status: Active Protocol: Document 01/24/23 11:26 LRN (Rec: 01/24/23 13:12 LRN [id number]) Current Condition History of Current Condition Onset Date 2-3 yrs ago Current Complaints Feels something sometimes and has small leakages going to bathroom. History of Current Condition 2-3 yrs ago had pap smear and was told she had a uterine prolapse. A few months ago did follow up and had a 2-3 prolapse of uterus, bladder, and rectocele. Would prefer to not have uterus removed. Doesn't feel it has worsened in the past 5 yrs. Does Kegel ex as well as abdominal exercises at home. States she sometimes leaks as she is heading to the bathroom after an urge and sometimes leaks with sneezing. Developmental History Developmental History 2 children, vaginal delivery with torn perineum both times with stitch repair. 2nd the stitches tore and was not repaired, so she reports a flap that sticks out . No urinary leakage with biking or hiking. Has back that limits activity. Pt reported PMH: meniscus tear bilaterally. Treatment Goals Patient/Caregiver Goals Pt goal is to 1) Get uterus to lift and strengthening ligs to hold it up, 2) lift rectal and bladder, 3) learn ex's and what to do to prevent surgery , 4) become comfortable at opening of anus. Personal Factors Other Personal Factors That May Effect Sciatic bilateral LE's, Therapy/Recovery hypothyroid. R handed, PT-OP-C Subjective Start: 01/10/23 18:46 Freq: Status: Active Protocol: Document 06/25/23 09:38 LRN (Rec: 06/25/23 10:31 LRN [id number]) OP-PT Subjective Patient Comments Patient Comments States she has had more sciatic pain down the L leg in variable patterns, front and back and sometimes down to ankle. States she is moving her mom close and hopes to be able to come more consistent once she if moved. Patient Questionnaires Pelvic Pain and Urgency/Frequency Patient Symptom Scale Pelvic Pain Score 12 PT-OP-I Pelvic Floor Start: 01/10/23 18:46 Freq: Status: Active Protocol: Document 03/21/23 10:34 LRN (Rec: 03/21/23 11:24 LRN [id number]) Pelvic Floor Assessment Pelvic Clock Pelvic Clock Other No tenderness noted. Prolapse Cystocele Grade 1 Prolapse Comments Very mild prolapse noted. Perineal Descent Resting Absent Bearing Absent SEMG (uV) Baseline 2.7 10 Second Contraction 12.2 PT-OP-J Posture/Palpation/Skin Start: 01/10/23 18:46 Freq: Status: Active Protocol: Document 01/24/23 11:26 LRN (Rec: 01/24/23 13:12 LRN [id number]) Posture Evaluation Position Standing T-Spine Posture Flattened L-Spine Posture Increased Lordosis Shoulder Posture Neutral,(L) Elevated Arm Posture (L) Internally Rotated,(R) Internally Rotated Pelvis Posture Anteriorly Tilted Knee Posture (L) Neutral,(R) Neutral Ankle/Foot Posture (L) Neutral,(R) Neutral Comments Posture Comments Decreased lordosis, slight anterior tilt PT-OP-K Range of Motion Start: 01/10/23 18:46 Freq: Status: Active Protocol: Document 01/24/23 11:26 LRN (Rec: 01/24/23 13:12 LRN [id number]) Lumbar Spine Range of Motion Lumbar Spine Active Degrees Testing Position Standing Flexion 115 Extension 30 Rotation Left 50 Rotation Right 50 Lateral Flexion Left 18 Lateral Flexion Right 15 Comments Lumbar ROM: Trunk Flexion is 115 deg?s with 83 deg?s hip flexion, Trunk extension is 30 deg?s with 10 deg?s hip extension Scoliosis in mid back upper curve apex to L, lower curve apex to R. Hip Goniometric Range of Motion Hip Right Passive Testing Position Supine Abduction 50 Internal Rotation 45 External Rotation 75 Left Passive Hip ROM WFL Yes Testing Position Supine Abduction 50 Internal Rotation 35 External Rotation 70 PT-OP-M Strength Start: 01/10/23 18:46 Freq: Status: Active Protocol: Document 01/24/23 11:26 LRN (Rec: 01/24/23 13:12 LRN [id number]) Trunk Strength Trunk Manual Muscle Testing Core Stabilization Not able to maintain core stab with MMT of R hip flex, unstable with hip AB/AD, L hip Ext. Hip Strength Hip Manual Muscle Testing Right Flexion (L2) 5 Normal Extension (S1) 3 Fair Abduction 5 Normal Adduction 5 Normal External Rotation 3+ Fair+ Internal Rotation 3+ Fair+ Comments Pain in lower R gluteals. Left Flexion (L2) 5 Normal Extension (S1) 5 Normal Abduction 5 Normal Adduction 5 Normal External Rotation 3+ Fair+ Internal Rotation 3 Fair PT-OP-Q Treatments Start: 01/10/23 18:46 Freq: Status: Active Protocol: Document 06/25/23 09:38 LRN (Rec: 06/25/23 10:31 LRN [id number]) Manual Therapy Treatment Manual Techniques Sacral Balancing Type Sacral Balancing Body Location Sacrum Body Position Prone & Sup Comments Decreased mob of L sacral sulcus infer, R sacral Shear & R PA JAMAL & Ischial Tub, 6 pt balancing. Iliopsoas balancing. Self-Care/Home Management Treatment Education Other Education Brief review of pt using deep breathing for relaxation of vagus nerve. PT-OP-T Assessment and Plan Start: 01/10/23 18:46 Freq: Status: Active Protocol: Document 06/25/23 09:38 LRN (Rec: 06/25/23 10:31 LRN [id number]) Physical Therapy Assessment Goals Four Impairment Discomfort in anal region. 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 03/21/23: Uncomfortable in anal region. 04/18/23: No pain at anus opening LTG Duration 04/24/23 (04/18/23: MET GOAL) Three Impairment Pt is not able to perform a PF contraction in the absence of abdominal/glut Short Term Goal (STG) Pt will be aware of the sensation of a proper PF contraction. STG Duration 06/02/23 Nursing Home Goal (LTG) Pt will be able to isolate a PF contraction with a rectal and bladder lift, without overuse of the outer abdominal , gluteal, and hip AD muscles. 04/18/23: Pt able to perform PF contraction in isolation of the gluteal & hip AD ms. TA tightens mildly. LTG Duration 07/17/23 progressed 04/18/23 Two Impairment PF weakness with urinary leakage with an urge and stress. Short Term Goal (STG) Pt will be educated in urinary delay technique. STG Duration 02/01/23 (02/21/23: MET GOAL) Nursing Home Goal (LTG) Pt will demonstrate improved PF strength per EMG biofeedback. LTG Duration 07/17/23 One Impairment Lacks appropriate self care HEP. Impairment PUF score 3. Short Term Goal (STG) Education in proper methods for transfer with coordination of breathing, PF contractions , and proper vulvar/genital care. 02/14/23: Educated in pt transfers with coordination of breathing and PF contractions . Issued handout for proper vulvar/genital care. 02/21/23: Reviewed coordination of breathing/PF contractions with transfers, and proper vulvar/genital care. STG Duration 02/01/23 02/21/23: MET GOAL. Supervisor [employer] Goal (LTG) Pt will be independent with a self care HEP of PF/core strengthening and hip ROM exercises to work towards surgery prevention. 02/14/23: I/S pt in transfers with coordination of breathing and PF strengthening (long holds and quick flicks). 02/21/23: HEP: PF/LE roll in- outs LTG Duration 07/17/23 progressed 02/21/23. Assessment Summary Assessment Tight with L Sacral sulcus infer glide, R Sacral shear, PA of L JAMAL & R [place], L Iliopsoas > R. Pt had relief of discomfort in LB and symmetry of the hip ms, after manual treatment. Pt will probably now be able to benefit from coccygeal ms stretching if pelvic stability remains. Expect pt now has tight PF with worsening of PUF score, due to pt not relaxing her PF after contractions. Physical Therapy Plan Frequency and Duration Frequency of Treatment Sporacic or 1x/week Plan of Care Start Date 04/18/23 Plan of Care End Date 07/17/23 Next Visit Focus/Plan Next Note Type Progress Note Next Visit Plan Next: Re-assess for new POC dates, Assess response to sacral balancing and address Sciatic nerve. Start PF stretching with wand for posterior PF ms and focus on PF relaxation. After stretching, check to see if able to get PF contraction getting a rectal and bladder lift sensation, without overuse of the outer abdomen. Add hip and LB stretches for tightness/Sciatic pain. Pt to continue sporadically due to personal activities involving her mother. Continue manual therapy to reduce abdominal tightness ( ileocecal valve, posterior peritoneum). EMG Biofeedback for relaxing resting tone (not strengthening). Discuss different pads and usage (urine vs menstrual).
--- NOTE | 2023-07-15 17:06 | PT.OTN ---
Current Diagnoses Constipation, unspecified (07/15/23) Stiffness of unspecified hip, not elsewhere classified (07/15/23) Sciatica, unspecified side (07/15/23) Muscle weakness (generalized) (07/15/23) Stress incontinence (female) (male) (07/15/23) Urge incontinence (07/15/23) Other female genital prolapse (07/15/23) Other reduced mobility (07/15/23) Physical Therapy Treatment Note PT-OP-A Visit Information Start: 01/10/23 18:46 Freq: Status: Active Protocol: Document 07/15/23 12:14 LRN (Rec: 07/15/23 13:21 LRN [id number]) Out-Patient Physical Therapy Visit Information Visit Information Visit Type Treatment Note Visit Note 3 after PN 12 visits + LIQUOR MERCHANT visit = 13 visits Visit Start Time 12:34 Visit Stop Time 13:19 Total Visit Minutes 47 Visit Number Evaluation Information Evaluation Date 02/07/23 Precautions Precautions Bilateral LE Sciatic pain PT-OP-B Current Condition Start: 01/10/23 18:46 Freq: Status: Active Protocol: Document 01/24/23 11:26 LRN (Rec: 01/24/23 13:12 LRN [id number]) Current Condition History of Current Condition Onset Date 2-3 yrs ago Current Complaints Feels something sometimes and has small leakages going to bathroom. History of Current Condition 2-3 yrs ago had pap smear and was told she had a uterine prolapse. A few months ago did follow up and had a 2-3 prolapse of uterus, bladder, and rectocele. Would prefer to not have uterus removed. Doesn't feel it has worsened in the past 5 yrs. Does Kegel ex as well as abdominal exercises at home. States she sometimes leaks as she is heading to the bathroom after an urge and sometimes leaks with sneezing. Developmental History Developmental History 2 children, vaginal delivery with torn perineum both times with stitch repair. 2nd the stitches tore and was not repaired, so she reports a flap that sticks out . No urinary leakage with biking or hiking. Has back that limits activity. Pt reported PMH: meniscus tear bilaterally. Treatment Goals Patient/Caregiver Goals Pt goal is to 1) Get uterus to lift and strengthening ligs to hold it up, 2) lift rectal and bladder, 3) learn ex's and what to do to prevent surgery , 4) become comfortable at opening of anus. Personal Factors Other Personal Factors That May Effect Sciatic bilateral LE's, Therapy/Recovery hypothyroid. R handed, PT-OP-C Subjective Start: 01/10/23 18:46 Freq: Status: Active Protocol: Document 07/15/23 12:14 LRN (Rec: 07/15/23 13:21 LRN [id number]) OP-PT Subjective Patient Comments Patient Comments Was doing Kegels 3x/day but because having trouble w/BM's decreased to 1x/day. No anal pain, just pooping small benjamin. Hasn't ridden bike and has been drinking a lot of fluids. When tr7ing to have an orgasm has numbing pain down legs. States her LB is a problem but sometimes when she steps in a hole with her R foot it corrects her back for a little while. Her main concern is to prevent surgery due to her prolapse. PT-OP-I Pelvic Floor Start: 01/10/23 18:46 Freq: Status: Active Protocol: Document 03/21/23 10:34 LRN (Rec: 03/21/23 11:24 LRN [id number]) Pelvic Floor Assessment Pelvic Clock Pelvic Clock Other No tenderness noted. Prolapse Cystocele Grade 1 Prolapse Comments Very mild prolapse noted. Perineal Descent Resting Absent Bearing Absent SEMG (uV) Baseline 2.7 10 Second Contraction 12.2 PT-OP-J Posture/Palpation/Skin Start: 01/10/23 18:46 Freq: Status: Active Protocol: Document 01/24/23 11:26 LRN (Rec: 01/24/23 13:12 LRN [id number]) Posture Evaluation Position Standing T-Spine Posture Flattened L-Spine Posture Increased Lordosis Shoulder Posture Neutral,(L) Elevated Arm Posture (L) Internally Rotated,(R) Internally Rotated Pelvis Posture Anteriorly Tilted Knee Posture (L) Neutral,(R) Neutral Ankle/Foot Posture (L) Neutral,(R) Neutral Comments Posture Comments Decreased lordosis, slight anterior tilt PT-OP-K Range of Motion Start: 01/10/23 18:46 Freq: Status: Active Protocol: Document 01/24/23 11:26 LRN (Rec: 01/24/23 13:12 LRN [id number]) Lumbar Spine Range of Motion Lumbar Spine Active Degrees Testing Position Standing Flexion 115 Extension 30 Rotation Left 50 Rotation Right 50 Lateral Flexion Left 18 Lateral Flexion Right 15 Comments Lumbar ROM: Trunk Flexion is 115 deg?s with 83 deg?s hip flexion, Trunk extension is 30 deg?s with 10 deg?s hip extension Scoliosis in mid back upper curve apex to L, lower curve apex to R. Hip Goniometric Range of Motion Hip Right Passive Testing Position Supine Abduction 50 Internal Rotation 45 External Rotation 75 Left Passive Hip ROM WFL Yes Testing Position Supine Abduction 50 Internal Rotation 35 External Rotation 70 PT-OP-M Strength Start: 01/10/23 18:46 Freq: Status: Active Protocol: Document 01/24/23 11:26 LRN (Rec: 01/24/23 13:12 LRN [id number]) Trunk Strength Trunk Manual Muscle Testing Core Stabilization Not able to maintain core stab with MMT of R hip flex, unstable with hip AB/AD, L hip Ext. Hip Strength Hip Manual Muscle Testing Right Flexion (L2) 5 Normal Extension (S1) 3 Fair Abduction 5 Normal Adduction 5 Normal External Rotation 3+ Fair+ Internal Rotation 3+ Fair+ Comments Pain in lower R gluteals. Left Flexion (L2) 5 Normal Extension (S1) 5 Normal Abduction 5 Normal Adduction 5 Normal External Rotation 3+ Fair+ Internal Rotation 3 Fair PT-OP-Q Treatments Start: 01/10/23 18:46 Freq: Status: Active Protocol: Document 07/15/23 12:14 LRN (Rec: 07/15/23 13:21 LRN [id number]) Manual Therapy Treatment Soft Tissue Mobilization Internal Posterior PF Body Location Live Iliococcygeus and pubococcygeus ms Mobilization Type Sustained Pressure Intensity/Depth Superficial to moderate Body Position Hooklying Comments TBand around knees External Posterior PF Body Location Transverse Perineum, PF- urethra, 2-10 of PF clock Mobilization Type Sustained Pressure Comments TBand around knees Self-Care/Home Management Treatment Education Other Education Reviewed with pt reassessment and discussed POC and goals. Pt agreeable to continuation of therapy for PF strengthening to reduce risk of surgical intervention for cystocele. Activities Self-Care/Home Management Activities Pt I/S to focus on feeling the relaxation of her PF after a PF contraction and to minimize PF contractions to 5-10x/day. PT-OP-T Assessment and Plan Start: 01/10/23 18:46 Freq: Status: Active Protocol: Document 07/15/23 12:14 LRN (Rec: 07/15/23 13:21 LRN [id number]) Physical Therapy Assessment Rehab Potential Rehabilitation Potential Good Evaluation Complexity Number of Personal Factors/Comorbidities 1-2 Number of Body Systems Impaired 4 or More Clinical Presentation at Evaluation Evolving Impairments Impairments Activity Tolerance,Pain,ROM, Soft Tissue Mobility,Strength Goals Four Impairment Discomfort in anal region. Long-Term Goal (LTG) Pt will become comfortable at opening of anus. 03/21/23: Uncomfortable in anal region. 04/18/23: No pain at anus opening LTG Duration 04/24/23 (04/18/23: MET GOAL) Three Impairment Pt is not able to perform a PF contraction in the absence of abdominal/glut Short Term Goal (STG) Pt will be aware of the sensation of a proper PF contraction. STG Duration 08/02/23 (2 weeks) Senior Compensation Consultant Goal (LTG) Pt will be able to isolate a PF contraction with a rectal and bladder lift, without overuse of the outer abdominal , gluteal, and hip AD muscles. 04/18/23: Pt able to perform PF contraction in isolation of the gluteal & hip AD ms. TA tightens mildly. LTG Duration 09/16/23 (4 weeks) progressed 04/18/23 Two Impairment PF weakness with urinary leakage with an urge and stress. Short Term Goal (STG) Pt will be educated in urinary delay technique. STG Duration 02/01/23 (02/21/23: MET GOAL) Senior Compensation Consultant Goal (LTG) Pt will demonstrate improved PF strength per EMG biofeedback. 07/15/23: Hardly ever leaks. Leaks with running or jumping. LTG Duration 09/16/23 (4 weeks) One Impairment Lacks appropriate self care HEP. Impairment PUF score 3. Short Term Goal (STG) Education in proper methods for transfer with coordination of breathing, PF contractions , and proper vulvar/genital care. 02/14/23: Educated in pt transfers with coordination of breathing and PF contractions . Issued handout for proper vulvar/genital care. 02/21/23: Reviewed coordination of breathing/PF contractions with transfers, and proper vulvar/genital care. STG Duration 02/01/23 02/21/23: MET GOAL. Long-Term Goal (LTG) Pt will be independent with a self care HEP of PF/core strengthening and hip ROM exercises to work towards surgery prevention. 02/14/23: I/S pt in transfers with coordination of breathing and PF strengthening (long holds and quick flicks). 02/21/23: HEP: PF/LE roll in- outs LTG Duration 09/16/23 (4 weeks) progressed 02/21/23. Assessment Summary Assessment Pt is a 62 yo female who was initially seen for mixed urinary incontinence, noted with cytocele grade 3, and rectocele grade 2 due to weak pelvic floor and drop of her uterus, as palpated with digitial insertion in vaginal canal. The pt has been seen for 3 visits since the last progress note 04/18/23 due to personal circumstances involving her parents; therefore progress towards goals has been slow. The pt is now ready to be more consistent with therapy, and today demonstrates good PF strength except at the R lateral wall and her urethra appeared to be tipped to the R , but was improved with STM. The pt has a small vaginal opening but demonstrated only a grade 2 cystocele and rectocele with no worsening when bearing down. She appeared to be able to increase her PF contraction by 1 grade after stretching the PF lateral wahl, showing a + response to STM. The pt is having less episodes of urinary leakage except when reportedly stressed with running or jumping. Not bicycle riding appears to have reduced her urinary leakage complaints. Coccyx positioning needs further assessment and depending on response to coccygeal ms stretching, further PF stretching to improve PF strength and symmetry of contraction. VEMG assessment at her next appt will be beneficial to assess and improve strength per biofeedback. Her LBP & sciatic nerve pain has hindered her progress. Pt will benefit from further PF rehab to reduce PF resting tone after contractions and STM to improve PF strength and symmetry of contraction. Continued review of core pressure management will be important to this pt in reducing her risk of worsening cystocele or rectocele. Physical Therapy Plan Frequency and Duration Frequency of Treatment Sporacic or 1x/week Duration of treatment (weeks) 4 Plan of Care Start Date 07/15/23 Plan of Care End Date 09/16/23 Therapeutic Interventions Therapeutic Interventions Home Exercise Program,Joint Mobilizations,Manual Therapy, Neuromuscular Re-education, Patient/Caregiver Education, Self-Care/Home Management,Soft Tissue Mobilization, Therapeutic Exercises Modalities Biofeedback,Electric Stimulation Next Visit Focus/Plan Next Note Type Treatment Note Next Visit Plan Next: Check if pt recalled response to sacral balancing , assess PF strength per Vemg and PF relaxation before & after STM w/biofeedback. Address Sciatic nerve pain if present. Start PF stretching with wand for posterior PF ms and focus on PF relaxation. After stretching, check to see if able to get PF contraction getting a rectal and bladder lift sensation, without overuse of the outer abdomen. Add hip and LB stretches for tightness/Sciatic pain. Continue manual therapy to reduce abdominal tightness ( ileocecal valve, posterior peritoneum). Discuss different pads and usage (urine vs menstrual).
--- NOTE | 2023-07-19 12:59 | PT-OP ANOTE ---
Pt called to report she felt really good after last session and looks forward to coming in 3 days.
--- NOTE | 2023-07-22 16:35 | PT.OTN ---
Current Diagnoses Constipation, unspecified (07/22/23) Stiffness of unspecified hip, not elsewhere classified (07/22/23) Sciatica, unspecified side (07/22/23) Muscle weakness (generalized) (07/22/23) Stress incontinence (female) (male) (07/22/23) Urge incontinence (07/22/23) Other female genital prolapse (07/22/23) Other reduced mobility (07/22/23) Physical Therapy Treatment Note PT-OP-A Visit Information Start: 01/10/23 18:46 Freq: Status: Active Protocol: Document 07/22/23 11:22 LRN (Rec: 07/22/23 12:13 LRN [id number]) Out-Patient Physical Therapy Visit Information Visit Information Visit Type Treatment Note Visit Note 4 after PN 12 visits + MANAGER OUTREACH visit = 13 visits Visit Start Time 11:22 Visit Stop Time 12:12 Total Visit Minutes 50 Visit Number Evaluation Information Evaluation Date 07/22/23 Precautions Precautions Bilateral LE Sciatic pain PT-OP-B Current Condition Start: 01/10/23 18:46 Freq: Status: Active Protocol: Document 01/24/23 11:26 LRN (Rec: 01/24/23 13:12 LRN [id number]) Current Condition History of Current Condition Onset Date 2-3 yrs ago Current Complaints Feels something sometimes and has small leakages going to bathroom. History of Current Condition 2-3 yrs ago had pap smear and was told she had a uterine prolapse. A few months ago did follow up and had a 2-3 prolapse of uterus, bladder, and rectocele. Would prefer to not have uterus removed. Doesn't feel it has worsened in the past 5 yrs. Does Kegel ex as well as abdominal exercises at home. States she sometimes leaks as she is heading to the bathroom after an urge and sometimes leaks with sneezing. Developmental History Developmental History 2 children, vaginal delivery with torn perineum both times with stitch repair. 2nd the stitches tore and was not repaired, so she reports a flap that sticks out . No urinary leakage with biking or hiking. Has back that limits activity. Pt reported PMH: meniscus tear bilaterally. Treatment Goals Patient/Caregiver Goals Pt goal is to 1) Get uterus to lift and strengthening ligs to hold it up, 2) lift rectal and bladder, 3) learn ex's and what to do to prevent surgery , 4) become comfortable at opening of anus. Personal Factors Other Personal Factors That May Effect Sciatic bilateral LE's, Therapy/Recovery hypothyroid. R handed, PT-OP-C Subjective Start: 01/10/23 18:46 Freq: Status: Active Protocol: Document 07/22/23 11:22 LRN (Rec: 07/22/23 12:13 LRN [id number]) OP-PT Subjective Patient Comments Patient Comments Has had normal bowel movements since last treatment and had a hard fall that might have helped her spine, because having less tingling in her leg. PT-OP-I Pelvic Floor Start: 01/10/23 18:46 Freq: Status: Active Protocol: Document 07/22/23 11:22 LRN (Rec: 07/22/23 12:13 LRN [id number]) Pelvic Floor Assessment SEMG (uV) Baseline 2.4 Quick Contraction 12.1 10 Second Contraction 12.2 Recruitment Pattern Good Relaxation Fair Holding Good Stability of Hold Good SEMG Stability of Rest Fair Contraction Ability Voluntary Contraction Moderate Voluntary Relaxation Moderate Manual Muscle Testing Left 2 Manual Muscle Testing Right 1 Manual Muscle Testing Anterior 3 Manual Muscle Testing Posterior 3 Muscle Endurance (Seconds) 4 Number of Quick Contractions In 10 5 Seconds PT-OP-J Posture/Palpation/Skin Start: 01/10/23 18:46 Freq: Status: Active Protocol: Document 01/24/23 11:26 LRN (Rec: 01/24/23 13:12 LRN [id number]) Posture Evaluation Position Standing T-Spine Posture Flattened L-Spine Posture Increased Lordosis Shoulder Posture Neutral,(L) Elevated Arm Posture (L) Internally Rotated,(R) Internally Rotated Pelvis Posture Anteriorly Tilted Knee Posture (L) Neutral,(R) Neutral Ankle/Foot Posture (L) Neutral,(R) Neutral Comments Posture Comments Decreased lordosis, slight anterior tilt PT-OP-K Range of Motion Start: 01/10/23 18:46 Freq: Status: Active Protocol: Document 01/24/23 11:26 LRN (Rec: 01/24/23 13:12 LRN [id number]) Lumbar Spine Range of Motion Lumbar Spine Active Degrees Testing Position Standing Flexion 115 Extension 30 Rotation Left 50 Rotation Right 50 Lateral Flexion Left 18 Lateral Flexion Right 15 Comments Lumbar ROM: Trunk Flexion is 115 deg?s with 83 deg?s hip flexion, Trunk extension is 30 deg?s with 10 deg?s hip extension Scoliosis in mid back upper curve apex to L, lower curve apex to R. Hip Goniometric Range of Motion Hip Right Passive Testing Position Supine Abduction 50 Internal Rotation 45 External Rotation 75 Left Passive Hip ROM WFL Yes Testing Position Supine Abduction 50 Internal Rotation 35 External Rotation 70 PT-OP-M Strength Start: 01/10/23 18:46 Freq: Status: Active Protocol: Document 01/24/23 11:26 LRN (Rec: 01/24/23 13:12 LRN [id number]) Trunk Strength Trunk Manual Muscle Testing Core Stabilization Not able to maintain core stab with MMT of R hip flex, unstable with hip AB/AD, L hip Ext. Hip Strength Hip Manual Muscle Testing Right Flexion (L2) 5 Normal Extension (S1) 3 Fair Abduction 5 Normal Adduction 5 Normal External Rotation 3+ Fair+ Internal Rotation 3+ Fair+ Comments Pain in lower R gluteals. Left Flexion (L2) 5 Normal Extension (S1) 5 Normal Abduction 5 Normal Adduction 5 Normal External Rotation 3+ Fair+ Internal Rotation 3 Fair PT-OP-Q Treatments Start: 01/10/23 18:46 Freq: Status: Active Protocol: Document 07/22/23 11:22 LRN (Rec: 07/22/23 12:13 LRN [id number]) Therapeutic Exercises Supine Exercises Resting tone Supine Exercise Name 2.4 uV's Reps/Minutes 2x Comments Extra time needed due to change in program. Long Holds Supine Exercise Name Long Holds contractions with biofeedback Equipment Used EMG Biofeedback Reps/Minutes 10 SH x10 & 20 rep contractions (see PF assessment above) Comments Extra time needed due to change in program. Quick Flicks Supine Exercise Name Quick Flicks Equipment Used vEMG electrode Reps/Minutes 2 sec/5 sec rest Comments 10 & 20 rep contractions (see PF assessment above) Manual Therapy Treatment Soft Tissue Mobilization Abdomen Body Location Lower abdomen (bladder/uterus, urachus) Mobilization Type Sustained Pressure,Trigger Point Release Intensity/Depth Superficial to moderate Body Position Hooklying Internal Posterior PF Body Location Live Iliococcygeus and pubococcygeus ms Mobilization Type Sustained Pressure Intensity/Depth Superficial to moderate Body Position Hooklying Comments TBand around knees External Posterior PF Body Location Transverse Perineum Mobilization Type Sustained Pressure Comments TBand around knees Self-Care/Home Management Treatment Education Other Education Educated pt in self STM of PF using small wand. Showed pt with wand and pt visual feedback with mirror for training. Activities Self-Care/Home Management Activities Issued wand for home self stretching. PT-OP-T Assessment and Plan Start: 01/10/23 18:46 Freq: Status: Active Protocol: Document 07/22/23 11:22 LRN (Rec: 07/22/23 12:13 LRN [id number]) Physical Therapy Assessment Goals Three Impairment Pt is not able to perform a PF contraction in the absence of abdominal/glut Short Term Goal (STG) Pt will be aware of the sensation of a proper PF contraction. STG Duration 08/02/23 (2 weeks) Ammonia Nitrate Operator Goal (LTG) Pt will be able to isolate a PF contraction with a rectal and bladder lift, without overuse of the outer abdominal , gluteal, and hip AD muscles. 04/18/23: Pt able to perform PF contraction in isolation of the gluteal & hip AD ms. TA tightens mildly. LTG Duration 09/16/23 (4 weeks) progressed 04/18/23 Two Impairment PF weakness with urinary leakage with an urge and stress. Short Term Goal (STG) Pt will be educated in urinary delay technique. STG Duration 02/01/23 (02/21/23: MET GOAL) Group Home Goal (LTG) Pt will demonstrate improved PF strength per EMG biofeedback. 07/15/23: Hardly ever leaks. Leaks with running or jumping. 07/22/23: Strength of contraction is about the same but PF relaxation is slightly less. LTG Duration 09/16/23 (4 weeks) One Impairment Lacks appropriate self care HEP. Impairment PUF score 3. Short Term Goal (STG) Education in proper methods for transfer with coordination of breathing, PF contractions , and proper vulvar/genital care. 02/14/23: Educated in pt transfers with coordination of breathing and PF contractions . Issued handout for proper vulvar/genital care. 02/21/23: Reviewed coordination of breathing/PF contractions with transfers, and proper vulvar/genital care. STG Duration 02/01/23 02/21/23: MET GOAL. Group Home Goal (LTG) Pt will be independent with a self care HEP of PF/core strengthening and hip ROM exercises to work towards surgery prevention. 02/14/23: I/S pt in transfers with coordination of breathing and PF strengthening (long holds and quick flicks). 02/21/23: HEP: PF/LE roll in- outs LTG Duration 09/16/23 (4 weeks) progressed 02/21/23. Assessment Summary Assessment Pt having less numbness in LE' s after recent fall/therefore held discussion of sacral balancing. Pt SEMG assessment shows strength of contraction is about the same, but her ability to relax the PF is slightly by 0.5 uV's. Pt has ~ 3-4 trP's in the PF at 6, 7, & 8 of PF clock. Held Sacral balancing due to pt's recent fall and pt feeling less tingling in LE's. Physical Therapy Plan Frequency and Duration Frequency of Treatment Sporacic or 1x/week Duration of treatment (weeks) 4 Plan of Care Start Date 07/15/23 Plan of Care End Date 09/16/23 Next Visit Focus/Plan Next Note Type Treatment Note Next Visit Plan Next: Assess response to self PF wand stretching. Assess PF relaxation before & after STM w/biofeedback with focus on PF relaxation and long hold PF contraction strengthening. After stretching, check to see if able to get PF contraction (getting a rectal and bladder lift sensation), without overuse of the outer abdomen. PF neuro-john strengthening per Vemg. Add hip and LB stretches for tightness/Sciatic pain ( Address Sciatic nerve pain if needed). Continue manual therapy to reduce abdominal tightness ( ileocecal valve, posterior peritoneum). Discuss different pads and usage (urine vs menstrual).
--- NOTE | 2023-07-30 16:55 | PT.OTN ---
Current Diagnoses Constipation, unspecified (07/30/23) Stiffness of unspecified hip, not elsewhere classified (07/30/23) Sciatica, unspecified side (07/30/23) Muscle weakness (generalized) (07/30/23) Stress incontinence (female) (male) (07/30/23) Urge incontinence (07/30/23) Other female genital prolapse (07/30/23) Other reduced mobility (07/30/23) Physical Therapy Treatment Note PT-OP-A Visit Information Start: 01/10/23 18:46 Freq: Status: Active Protocol: Document 07/30/23 13:20 LRN (Rec: 07/30/23 14:08 LRN [id number]) Out-Patient Physical Therapy Visit Information Visit Information Visit Type Treatment Note Visit Note 5 after PN 12 visits + COMPUTER AIDED DESIGN DRAFTER visit = 13 visits Visit Start Time 13:20 Visit Stop Time 14:05 Total Visit Minutes 45 Visit Number Evaluation Information Evaluation Date 07/22/23 Precautions Precautions Bilateral LE Sciatic pain PT-OP-B Current Condition Start: 01/10/23 18:46 Freq: Status: Active Protocol: Document 01/24/23 11:26 LRN (Rec: 01/24/23 13:12 LRN [id number]) Current Condition History of Current Condition Onset Date 2-3 yrs ago Current Complaints Feels something sometimes and has small leakages going to bathroom. History of Current Condition 2-3 yrs ago had pap smear and was told she had a uterine prolapse. A few months ago did follow up and had a 2-3 prolapse of uterus, bladder, and rectocele. Would prefer to not have uterus removed. Doesn't feel it has worsened in the past 5 yrs. Does Kegel ex as well as abdominal exercises at home. States she sometimes leaks as she is heading to the bathroom after an urge and sometimes leaks with sneezing. Developmental History Developmental History 2 children, vaginal delivery with torn perineum both times with stitch repair. 2nd the stitches tore and was not repaired, so she reports a flap that sticks out . No urinary leakage with biking or hiking. Has back that limits activity. Pt reported PMH: meniscus tear bilaterally. Treatment Goals Patient/Caregiver Goals Pt goal is to 1) Get uterus to lift and strengthening ligs to hold it up, 2) lift rectal and bladder, 3) learn ex's and what to do to prevent surgery , 4) become comfortable at opening of anus. Personal Factors Other Personal Factors That May Effect Sciatic bilateral LE's, Therapy/Recovery hypothyroid. R handed, PT-OP-C Subjective Start: 01/10/23 18:46 Freq: Status: Active Protocol: Document 07/30/23 13:20 LRN (Rec: 07/30/23 14:08 LRN [id number]) OP-PT Subjective Patient Comments Patient Comments Did not have time to stretch with the wand. PT-OP-I Pelvic Floor Start: 01/10/23 18:46 Freq: Status: Active Protocol: Document 07/30/23 13:20 LRN (Rec: 07/30/23 14:08 LRN [id number]) Pelvic Floor Assessment Comments Pelvic Floor Comments Start: Resting tone avg is 1. 2 uV's. After PF stretching w/wand: Resting tone is 2.3 uV's. After Abdominal and OI manual stretching is 1.7 uVs. PT-OP-J Posture/Palpation/Skin Start: 01/10/23 18:46 Freq: Status: Active Protocol: Document 01/24/23 11:26 LRN (Rec: 01/24/23 13:12 LRN [id number]) Posture Evaluation Position Standing T-Spine Posture Flattened L-Spine Posture Increased Lordosis Shoulder Posture Neutral,(L) Elevated Arm Posture (L) Internally Rotated,(R) Internally Rotated Pelvis Posture Anteriorly Tilted Knee Posture (L) Neutral,(R) Neutral Ankle/Foot Posture (L) Neutral,(R) Neutral Comments Posture Comments Decreased lordosis, slight anterior tilt PT-OP-K Range of Motion Start: 01/10/23 18:46 Freq: Status: Active Protocol: Document 01/24/23 11:26 LRN (Rec: 01/24/23 13:12 LRN [id number]) Lumbar Spine Range of Motion Lumbar Spine Active Degrees Testing Position Standing Flexion 115 Extension 30 Rotation Left 50 Rotation Right 50 Lateral Flexion Left 18 Lateral Flexion Right 15 Comments Lumbar ROM: Trunk Flexion is 115 deg?s with 83 deg?s hip flexion, Trunk extension is 30 deg?s with 10 deg?s hip extension Scoliosis in mid back upper curve apex to L, lower curve apex to R. Hip Goniometric Range of Motion Hip Right Passive Testing Position Supine Abduction 50 Internal Rotation 45 External Rotation 75 Left Passive Hip ROM WFL Yes Testing Position Supine Abduction 50 Internal Rotation 35 External Rotation 70 PT-OP-M Strength Start: 01/10/23 18:46 Freq: Status: Active Protocol: Document 01/24/23 11:26 LRN (Rec: 01/24/23 13:12 LRN [id number]) Trunk Strength Trunk Manual Muscle Testing Core Stabilization Not able to maintain core stab with MMT of R hip flex, unstable with hip AB/AD, L hip Ext. Hip Strength Hip Manual Muscle Testing Right Flexion (L2) 5 Normal Extension (S1) 3 Fair Abduction 5 Normal Adduction 5 Normal External Rotation 3+ Fair+ Internal Rotation 3+ Fair+ Comments Pain in lower R gluteals. Left Flexion (L2) 5 Normal Extension (S1) 5 Normal Abduction 5 Normal Adduction 5 Normal External Rotation 3+ Fair+ Internal Rotation 3 Fair PT-OP-Q Treatments Start: 01/10/23 18:46 Freq: Status: Active Protocol: Document 07/30/23 13:20 LRN (Rec: 07/30/23 14:08 LRN [id number]) Manual Therapy Treatment Soft Tissue Mobilization Obturator Internus Body Location L OI primarily Mobilization Type Sustained Pressure Body Position Hooklying Comments TBand around knees. Abdomen Body Location Lower abdomen (bladder/uterus, urachus) Internal Posterior PF Body Location Live Iliococcygeus and pubococcygeus ms Mobilization Type Instrument Assisted,Sustained Pressure Intensity/Depth Superficial to moderate Body Position Hooklying Comments TBand around knees External Posterior PF Body Location Transverse Perineum Mobilization Type Instrument Assisted,Sustained Pressure Intensity/Depth Superficial Body Position Hooklying Comments TBand around knees Neuro Re-Education Treatment Other Activities EMG PF awareness training Details Resting tone at start, after PF wand stretching & after manual STM. Reps/Duration 6' Comments See PF assessent comments above. PT-OP-T Assessment and Plan Start: 01/10/23 18:46 Freq: Status: Active Protocol: Document 07/30/23 13:20 LRN (Rec: 07/30/23 14:08 LRN [id number]) Physical Therapy Assessment Goals Three Impairment Pt is not able to perform a PF contraction in the absence of abdominal/glut Short Term Goal (STG) Pt will be aware of the sensation of a proper PF contraction. STG Duration 08/02/23 (2 weeks) Pig Farm Manager Goal (LTG) Pt will be able to isolate a PF contraction with a rectal and bladder lift, without overuse of the outer abdominal , gluteal, and hip AD muscles. 04/18/23: Pt able to perform PF contraction in isolation of the gluteal & hip AD ms. TA tightens mildly. LTG Duration 09/16/23 (4 weeks) progressed 04/18/23 Two Impairment PF weakness with urinary leakage with an urge and stress. Short Term Goal (STG) Pt will be educated in urinary delay technique. STG Duration 02/01/23 (02/21/23: MET GOAL) Nursing Home Goal (LTG) Pt will demonstrate improved PF strength per EMG biofeedback. 07/15/23: Hardly ever leaks. Leaks with running or jumping. 07/22/23: Strength of contraction is about the same but PF relaxation is slightly less. LTG Duration 09/16/23 (4 weeks) One Impairment Lacks appropriate self care HEP. Impairment PUF score 3. Short Term Goal (STG) Education in proper methods for transfer with coordination of breathing, PF contractions , and proper vulvar/genital care. 02/14/23: Educated in pt transfers with coordination of breathing and PF contractions . Issued handout for proper vulvar/genital care. 02/21/23: Reviewed coordination of breathing/PF contractions with transfers, and proper vulvar/genital care. STG Duration 02/01/23 02/21/23: MET GOAL. Nursing Home Goal (LTG) Pt will be independent with a self care HEP of PF/core strengthening and hip ROM exercises to work towards surgery prevention. 02/14/23: I/S pt in transfers with coordination of breathing and PF strengthening (long holds and quick flicks). 02/21/23: HEP: PF/LE roll in- outs LTG Duration 09/16/23 (4 weeks) progressed 02/21/23. Assessment Summary Assessment Pt had PF relaxation after manual abdominal and L>R OI stretching, but increased with PF wand stretching. Physical Therapy Plan Frequency and Duration Frequency of Treatment Sporacic or 1x/week Duration of treatment (weeks) 4 Plan of Care Start Date 07/15/23 Plan of Care End Date 09/16/23 Next Visit Focus/Plan Next Note Type Treatment Note Next Visit Plan POC: Posterior PF strengthening to prevent surgery for uterus, bladder & rectal prolapse and to eliminate small leakages. Next: biofeedback with focus on PF relaxation, rectal and bladder lift sensation w/PF contraction without overuse of the outer abdomen, and long hold PF contraction strengthening. PF neuro-john strengthening per Vemg. Add hip (Piriformis) and LB stretches for tightness/ Sciatic pain (Address Sciatic nerve pain if needed). Continue manual therapy to reduce Obturaror Internus & abdominal tightness (ileocecal valve, posterior peritoneum). Educ pt in use of Theracane for UT tightness. Discuss different pads and usage (urine vs menstrual).
--- NOTE | 2023-08-08 10:50 | PT.OPDS ---
Current Diagnoses Constipation, unspecified (08/08/23) Stiffness of unspecified hip, not elsewhere classified (08/08/23) Sciatica, unspecified side (08/08/23) Muscle weakness (generalized) (08/08/23) Stress incontinence (female) (male) (08/08/23) Urge incontinence (08/08/23) Other female genital prolapse (08/08/23) Other reduced mobility (08/08/23) Visit Care Team Role Provider Type ALCON Moss Family Provider Advanced Water Analyst Primary Care Provider Specialty: Medical Address: [address] [place] [address] Email: [email or web address] Lenore Fong MD Attending Provider Physician Referring Provider Specialty: Gynecology AUTOMOTIVE TIRE TESTER Obstetrics Address: [address] [place] [address], [facility] Email: [email or web address] Visit Number Visit Number Discharge Summary PT-OP-B Current Condition Start: 01/10/23 18:46 Freq: Status: Active Protocol: Document 01/24/23 11:26 LRN (Rec: 01/24/23 13:12 LRN [id number]) Current Condition History of Current Condition Onset Date 2-3 yrs ago Current Complaints Feels something sometimes and has small leakages going to bathroom. History of Current Condition 2-3 yrs ago had pap smear and was told she had a uterine prolapse. A few months ago did follow up and had a 2-3 prolapse of uterus, bladder, and rectocele. Would prefer to not have uterus removed. Doesn't feel it has worsened in the past 5 yrs. Does Kegel ex as well as abdominal exercises at home. States she sometimes leaks as she is heading to the bathroom after an urge and sometimes leaks with sneezing. Developmental History Developmental History 2 children, vaginal delivery with torn perineum both times with stitch repair. 2nd the stitches tore and was not repaired, so she reports a flap that sticks out . No urinary leakage with biking or hiking. Has back that limits activity. Pt reported PMH: meniscus tear bilaterally. Treatment Goals Patient/Caregiver Goals Pt goal is to 1) Get uterus to lift and strengthening ligs to hold it up, 2) lift rectal and bladder, 3) learn ex's and what to do to prevent surgery , 4) become comfortable at opening of anus. Personal Factors Other Personal Factors That May Effect Sciatic bilateral LE's, Therapy/Recovery hypothyroid. R handed, PT-OP-C Subjective Start: 01/10/23 18:46 Freq: Status: Active Protocol: Document 08/08/23 10:30 LRN (Rec: 08/08/23 12:12 LRN [id number]) OP-PT Subjective Patient Comments Patient Comments States has urinary leakage rarely, only if jumping or running on a full baldder when hot. States urinary leakage is only 1x/4 months. States her primary problem seems to be her back, positioning for intercourse and anterior L thigh pain with intercourse. PT-OP-I Pelvic Floor Start: 01/10/23 18:46 Freq: Status: Active Protocol: Document 08/08/23 10:30 LRN (Rec: 08/08/23 12:12 LRN [id number]) Pelvic Floor Assessment SEMG (uV) Baseline 2.2 Quick Contraction 13.6 10 Second Contraction 16.6 Recruitment Pattern Good Relaxation Fair Holding Good Stability of Hold Good SEMG Stability of Rest Fair Comments Pelvic Floor Comments Quick Flicks: 10 reps strength (uV's): avg work 14.2, avg rest 6.8. 20 reps strength (uV's): avg work 13.8, avg rest 6.1. Long Holds: 10 reps strength (uV's): avg work 12.8, avg rest 4.6. 20 reps strength (uV's): avg work 12.6, avg rest 3.6. PT-OP-J Posture/Palpation/Skin Start: 01/10/23 18:46 Freq: Status: Active Protocol: Document 01/24/23 11:26 LRN (Rec: 01/24/23 13:12 LRN [id number]) Posture Evaluation Position Standing T-Spine Posture Flattened L-Spine Posture Increased Lordosis Shoulder Posture Neutral,(L) Elevated Arm Posture (L) Internally Rotated,(R) Internally Rotated Pelvis Posture Anteriorly Tilted Knee Posture (L) Neutral,(R) Neutral Ankle/Foot Posture (L) Neutral,(R) Neutral Comments Posture Comments Decreased lordosis, slight anterior tilt PT-OP-K Range of Motion Start: 01/10/23 18:46 Freq: Status: Active Protocol: Document 01/24/23 11:26 LRN (Rec: 01/24/23 13:12 LRN [id number]) Lumbar Spine Range of Motion Lumbar Spine Active Degrees Testing Position Standing Flexion 115 Extension 30 Rotation Left 50 Rotation Right 50 Lateral Flexion Left 18 Lateral Flexion Right 15 Comments Lumbar ROM: Trunk Flexion is 115 deg?s with 83 deg?s hip flexion, Trunk extension is 30 deg?s with 10 deg?s hip extension Scoliosis in mid back upper curve apex to L, lower curve apex to R. Hip Goniometric Range of Motion Hip Right Passive Testing Position Supine Abduction 50 Internal Rotation 45 External Rotation 75 Left Passive Hip ROM WFL Yes Testing Position Supine Abduction 50 Internal Rotation 35 External Rotation 70 PT-OP-M Strength Start: 01/10/23 18:46 Freq: Status: Active Protocol: Document 01/24/23 11:26 LRN (Rec: 01/24/23 13:12 LRN [id number]) Trunk Strength Trunk Manual Muscle Testing Core Stabilization Not able to maintain core stab with MMT of R hip flex, unstable with hip AB/AD, L hip Ext. Hip Strength Hip Manual Muscle Testing Right Flexion (L2) 5 Normal Extension (S1) 3 Fair Abduction 5 Normal Adduction 5 Normal External Rotation 3+ Fair+ Internal Rotation 3+ Fair+ Comments Pain in lower R gluteals. Left Flexion (L2) 5 Normal Extension (S1) 5 Normal Abduction 5 Normal Adduction 5 Normal External Rotation 3+ Fair+ Internal Rotation 3 Fair PT-OP-T Assessment and Plan Start: 01/10/23 18:46 Freq: Status: Active Protocol: Document 08/08/23 10:30 LRN (Rec: 08/08/23 12:12 LRN [id number]) Physical Therapy Assessment Goals Three Impairment Pt is not able to perform a PF contraction in the absence of abdominal/glut Short Term Goal (STG) Pt will be aware of the sensation of a proper PF contraction. STG Duration 08/02/23 (2 weeks) (08/05/23 : MET GOAL) Usp Goal (LTG) Pt will be able to isolate a PF contraction with a rectal and bladder lift, without overuse of the outer abdominal , gluteal, and hip AD muscles. 04/18/23: Pt able to perform PF contraction in isolation of the gluteal & hip AD ms. TA tightens mildly. 08/08/23: TA tightens mildly LTG Duration 09/16/23 (4 weeks) (08/08/23: Partially met goal) Two Impairment PF weakness with urinary leakage with an urge and stress. Short Term Goal (STG) Pt will be educated in urinary delay technique. STG Duration 02/01/23 (02/21/23: MET GOAL) Director Of Convention Services Goal (LTG) Pt will demonstrate improved PF strength per EMG biofeedback. 07/15/23: Hardly ever leaks. Leaks with running or jumping. 07/22/23: Strength of contraction is about the same but PF relaxation is slightly less. 08/08/23: (Values in uV's) Resting tone 2.2 (initial was 2.7) Quick Contractions (20 reps) Work 13.8 (was 13.8)/ Rest 6.1 (was 6.1). Long Hold (20 reps) Work 16.6 (was 12.6 )/Rest 2.9 (was 3.6). LTG Duration 09/16/23 (4 weeks) (08/08/23 : MET GOAL) One Impairment Lacks appropriate self care HEP. Impairment PUF score 3. Short Term Goal (STG) Education in proper methods for transfer with coordination of breathing, PF contractions , and proper vulvar/genital care. 02/14/23: Educated in pt transfers with coordination of breathing and PF contractions . Issued handout for proper vulvar/genital care. 02/21/23: Reviewed coordination of breathing/PF contractions with transfers, and proper vulvar/genital care. STG Duration 02/01/23 02/21/23: MET GOAL. Usp Goal (LTG) Pt will be independent with a self care HEP of PF/core strengthening and hip ROM exercises to work towards surgery prevention. 02/14/23: I/S pt in transfers with coordination of breathing and PF strengthening (long holds and quick flicks). 02/21/23: HEP: PF/LE roll in- outs. 08/08/23: HEP: Piriformis and LE neural/hamstring stretch. Pt I/S in use of Theracane for back pain relief . LTG Duration 09/16/23 (4 weeks) (08/08/23 : MET GOAL). Assessment Summary Assessment Pt has improved in endurance with increased in strength of isolated PF contraction and a lower resting tone. Her Quick contractions show consistent strength over 20 reps ( previously showed reduced strength over 20 reps) but an increase in resting tone ( inital was 6.1 uV's, current was 8.0 uV's), but initially she was given 4 secs to achieve resting tone vs this time 2 secs, making possibly for a higher resting tone ( change in program was reason for difference in timing). The pt has low back pain that appears to be involved in her discomfort with positioning for intercourse, and has symptoms of L3, L4 sensory changes with intercourse; therefore it is recommended that the pt seek treatment for her low back and when completed, return for PF therapy if there are symptoms of PF dysfunction. The pt has met most of her goals and is ready to continue with her self care PF HEP. Physical Therapy Plan Frequency and Duration Frequency of Treatment Sporacic or 1x/week Duration of treatment (weeks) 4 Plan of Care Start Date 07/15/23 Plan of Care End Date 09/16/23
--- NOTE | 2023-08-08 11:50 | PT.OTN ---
Current Diagnoses Constipation, unspecified (08/08/23) Stiffness of unspecified hip, not elsewhere classified (08/08/23) Sciatica, unspecified side (08/08/23) Muscle weakness (generalized) (08/08/23) Stress incontinence (female) (male) (08/08/23) Urge incontinence (08/08/23) Other female genital prolapse (08/08/23) Other reduced mobility (08/08/23) Physical Therapy Treatment Note PT-OP-A Visit Information Start: 01/10/23 18:46 Freq: Status: Active Protocol: Document 08/08/23 10:30 LRN (Rec: 08/08/23 12:12 LRN [id number]) Out-Patient Physical Therapy Visit Information Visit Information Visit Type Treatment Note Visit Note 3 after PN Visit Start Time 10:30 Visit Stop Time 11:30 Total Visit Minutes 60 Visit Number Evaluation Information Evaluation Date 07/22/23 Precautions Precautions Bilateral LE Sciatic pain PT-OP-B Current Condition Start: 01/10/23 18:46 Freq: Status: Active Protocol: Document 01/24/23 11:26 LRN (Rec: 01/24/23 13:12 LRN [id number]) Current Condition History of Current Condition Onset Date 2-3 yrs ago Current Complaints Feels something sometimes and has small leakages going to bathroom. History of Current Condition 2-3 yrs ago had pap smear and was told she had a uterine prolapse. A few months ago did follow up and had a 2-3 prolapse of uterus, bladder, and rectocele. Would prefer to not have uterus removed. Doesn't feel it has worsened in the past 5 yrs. Does Kegel ex as well as abdominal exercises at home. States she sometimes leaks as she is heading to the bathroom after an urge and sometimes leaks with sneezing. Developmental History Developmental History 2 children, vaginal delivery with torn perineum both times with stitch repair. 2nd the stitches tore and was not repaired, so she reports a flap that sticks out . No urinary leakage with biking or hiking. Has back that limits activity. Pt reported PMH: meniscus tear bilaterally. Treatment Goals Patient/Caregiver Goals Pt goal is to 1) Get uterus to lift and strengthening ligs to hold it up, 2) lift rectal and bladder, 3) learn ex's and what to do to prevent surgery , 4) become comfortable at opening of anus. Personal Factors Other Personal Factors That May Effect Sciatic bilateral LE's, Therapy/Recovery hypothyroid. R handed, PT-OP-C Subjective Start: 01/10/23 18:46 Freq: Status: Active Protocol: Document 08/08/23 10:30 LRN (Rec: 08/08/23 12:12 LRN [id number]) OP-PT Subjective Patient Comments Patient Comments States has urinary leakage rarely, only if jumping or running on a full baldder when hot. States urinary leakage is only 1x/4 months. States her primary problem seems to be her back, positioning for intercourse and anterior L thigh pain with intercourse. PT-OP-I Pelvic Floor Start: 01/10/23 18:46 Freq: Status: Active Protocol: Document 08/08/23 10:30 LRN (Rec: 08/08/23 12:12 LRN [id number]) Pelvic Floor Assessment SEMG (uV) Baseline 2.2 Quick Contraction 13.6 10 Second Contraction 16.6 Recruitment Pattern Good Relaxation Fair Holding Good Stability of Hold Good SEMG Stability of Rest Fair Comments Pelvic Floor Comments Quick Flicks: 10 reps strength (uV's): avg work 14.2, avg rest 6.8. 20 reps strength (uV's): avg work 13.8, avg rest 6.1. Long Holds: 10 reps strength (uV's): avg work 12.8, avg rest 4.6. 20 reps strength (uV's): avg work 12.6, avg rest 3.6. PT-OP-J Posture/Palpation/Skin Start: 01/10/23 18:46 Freq: Status: Active Protocol: Document 01/24/23 11:26 LRN (Rec: 01/24/23 13:12 LRN [id number]) Posture Evaluation Position Standing T-Spine Posture Flattened L-Spine Posture Increased Lordosis Shoulder Posture Neutral,(L) Elevated Arm Posture (L) Internally Rotated,(R) Internally Rotated Pelvis Posture Anteriorly Tilted Knee Posture (L) Neutral,(R) Neutral Ankle/Foot Posture (L) Neutral,(R) Neutral Comments Posture Comments Decreased lordosis, slight anterior tilt PT-OP-K Range of Motion Start: 01/10/23 18:46 Freq: Status: Active Protocol: Document 01/24/23 11:26 LRN (Rec: 01/24/23 13:12 LRN [id number]) Lumbar Spine Range of Motion Lumbar Spine Active Degrees Testing Position Standing Flexion 115 Extension 30 Rotation Left 50 Rotation Right 50 Lateral Flexion Left 18 Lateral Flexion Right 15 Comments Lumbar ROM: Trunk Flexion is 115 deg?s with 83 deg?s hip flexion, Trunk extension is 30 deg?s with 10 deg?s hip extension Scoliosis in mid back upper curve apex to L, lower curve apex to R. Hip Goniometric Range of Motion Hip Right Passive Testing Position Supine Abduction 50 Internal Rotation 45 External Rotation 75 Left Passive Hip ROM WFL Yes Testing Position Supine Abduction 50 Internal Rotation 35 External Rotation 70 PT-OP-M Strength Start: 01/10/23 18:46 Freq: Status: Active Protocol: Document 01/24/23 11:26 LRN (Rec: 01/24/23 13:12 LRN [id number]) Trunk Strength Trunk Manual Muscle Testing Core Stabilization Not able to maintain core stab with MMT of R hip flex, unstable with hip AB/AD, L hip Ext. Hip Strength Hip Manual Muscle Testing Right Flexion (L2) 5 Normal Extension (S1) 3 Fair Abduction 5 Normal Adduction 5 Normal External Rotation 3+ Fair+ Internal Rotation 3+ Fair+ Comments Pain in lower R gluteals. Left Flexion (L2) 5 Normal Extension (S1) 5 Normal Abduction 5 Normal Adduction 5 Normal External Rotation 3+ Fair+ Internal Rotation 3 Fair PT-OP-Q Treatments Start: 01/10/23 18:46 Freq: Status: Active Protocol: Document 08/08/23 10:30 LRN (Rec: 08/08/23 12:12 LRN [id number]) Therapeutic Exercises Supine Exercises LE neural glide Supine Exercise Name Hamstring/LE neutral stretch Side bilateral Reps/Minutes 10 SH x 10 ankle pumps x 6 each Comments Cuing to hold HS stretch and ankle mvmts of any kind, and NOT into pain. Piriformis stretch Supine Exercise Name Ankle over knee>knee to chest & crossed legs>knee to chest Side bilateral Reps/Minutes 30 SH x 2 each Comments Cuing to not stretch into pain Resting tone Supine Exercise Name 2.2 uV's Reps/Minutes 1x - 60 sec assessment Comments Extra time needed due to change in program. PF contraction Supine Exercise Name Review of PF contractions in isolation of substitute muscles. Reps/Minutes 2' Comments Pt feels she knows what PF contraction feels like (lift) and can isolate. Long Holds Supine Exercise Name Long Holds contractions with biofeedback Equipment Used EMG Biofeedback Reps/Minutes 10 SH x10 & 20 rep contractions (see PF assessment above) Comments Extra time needed due to change in program. Quick Flicks Supine Exercise Name Quick Flicks Equipment Used vEMG electrode Reps/Minutes 2 sec/5 sec rest Comments 10 & 20 rep contractions (see PF assessment above) Sitting Exercises C/S stretch Sitting Exercise Name SB and SB w/rotation Side bilateral Reps/Minutes 3' Manual Therapy Treatment Soft Tissue Mobilization Upper back/Low Back Body Location R UT Mobilization Type Instrument Assisted Body Position Sitting Comments Pt provided self STM with Theracane with graded pressure at active trigger points. Self-Care/Home Management Treatment Education Other Education Pt educated and discussed: types of pads for bladder leakage (vs menstrual pads). Educ pt in use of Theracane for UT tightness. Activities Self-Care/Home Management Activities Issued & reviewed HEP: Piriformis stretch supine & sit, and LE neural/hamstring stretch. PT-OP-T Assessment and Plan Start: 01/10/23 18:46 Freq: Status: Active Protocol: Document 08/08/23 10:30 LRN (Rec: 08/08/23 12:12 LRN [id number]) Physical Therapy Assessment Goals Three Impairment Pt is not able to perform a PF contraction in the absence of abdominal/glut Short Term Goal (STG) Pt will be aware of the sensation of a proper PF contraction. STG Duration 08/02/23 (2 weeks) (08/05/23 : MET GOAL) Licensed Real Estate Broker Goal (LTG) Pt will be able to isolate a PF contraction with a rectal and bladder lift, without overuse of the outer abdominal , gluteal, and hip AD muscles. 04/18/23: Pt able to perform PF contraction in isolation of the gluteal & hip AD ms. TA tightens mildly. 08/08/23: TA tightens mildly LTG Duration 09/16/23 (4 weeks) (08/08/23: Partially met goal) Two Impairment PF weakness with urinary leakage with an urge and stress. Short Term Goal (STG) Pt will be educated in urinary delay technique. STG Duration 02/01/23 (02/21/23: MET GOAL) Retirement Goal (LTG) Pt will demonstrate improved PF strength per EMG biofeedback. 07/15/23: Hardly ever leaks. Leaks with running or jumping. 07/22/23: Strength of contraction is about the same but PF relaxation is slightly less. 08/08/23: (Values in uV's) Resting tone 2.2 (initial was 2.7) Quick Contractions (20 reps) Work 13.8 (was 13.8)/ Rest 6.1 (was 6.1). Long Hold (20 reps) Work 16.6 (was 12.6 )/Rest 2.9 (was 3.6). LTG Duration 09/16/23 (4 weeks) (08/08/23 : MET GOAL) One Impairment Lacks appropriate self care HEP. Impairment PUF score 3. Short Term Goal (STG) Education in proper methods for transfer with coordination of breathing, PF contractions , and proper vulvar/genital care. 02/14/23: Educated in pt transfers with coordination of breathing and PF contractions . Issued handout for proper vulvar/genital care. 02/21/23: Reviewed coordination of breathing/PF contractions with transfers, and proper vulvar/genital care. STG Duration 02/01/23 02/21/23: MET GOAL. Retirement Goal (LTG) Pt will be independent with a self care HEP of PF/core strengthening and hip ROM exercises to work towards surgery prevention. 02/14/23: I/S pt in transfers with coordination of breathing and PF strengthening (long holds and quick flicks). 02/21/23: HEP: PF/LE roll in- outs. 08/08/23: HEP: Piriformis and LE neural/hamstring stretch. Pt I/S in use of Theracane for back pain relief . LTG Duration 09/16/23 (4 weeks) (08/08/23 : MET GOAL). Assessment Summary Assessment Pt has improved in endurance with increased in strength of isolated PF contraction and a lower resting tone. Her Quick contractions show consistent strength over 20 reps ( previously showed reduced strength over 20 reps) but an increase in resting tone ( inital was 6.1 uV's, current was 8.0 uV's), but initially she was given 4 secs to achieve resting tone vs this time 2 secs, making possibly for a higher resting tone ( change in program was reason for difference in timing). The pt has low back pain that appears to be involved in her discomfort with positioning for intercourse, and has symptoms of L3, L4 sensory changes with intercourse; therefore it is recommended that the pt seek treatment for her low back and when completed, return for PF therapy if there are symptoms of PF dysfunction. The pt has met most of her goals and is ready to continue with her self care PF HEP. Physical Therapy Plan Frequency and Duration Frequency of Treatment Sporacic or 1x/week Duration of treatment (weeks) 4 Plan of Care Start Date 07/15/23 Plan of Care End Date 09/16/23
--- NOTE | 2023-08-15 10:53 | PT.OTN ---
Current Diagnoses Constipation, unspecified (08/08/23) Stiffness of unspecified hip, not elsewhere classified (08/08/23) Sciatica, unspecified side (08/08/23) Muscle weakness (generalized) (08/08/23) Stress incontinence (female) (male) (08/08/23) Urge incontinence (08/08/23) Other female genital prolapse (08/08/23) Other reduced mobility (08/08/23) Physical Therapy Treatment Note PT-OP-A Visit Information Start: 01/10/23 18:46 Freq: Status: Active Protocol: Document 08/08/23 10:30 LRN (Rec: 08/08/23 12:12 LRN [id number]) Out-Patient Physical Therapy Visit Information Visit Information Visit Type Treatment Note Visit Note 3 after PN Visit Start Time 10:30 Visit Stop Time 11:30 Total Visit Minutes 60 Visit Number Evaluation Information Evaluation Date 07/22/23 Precautions Precautions Bilateral LE Sciatic pain PT-OP-B Current Condition Start: 01/10/23 18:46 Freq: Status: Active Protocol: Document 01/24/23 11:26 LRN (Rec: 01/24/23 13:12 LRN [id number]) Current Condition History of Current Condition Onset Date 2-3 yrs ago Current Complaints Feels something sometimes and has small leakages going to bathroom. History of Current Condition 2-3 yrs ago had pap smear and was told she had a uterine prolapse. A few months ago did follow up and had a 2-3 prolapse of uterus, bladder, and rectocele. Would prefer to not have uterus removed. Doesn't feel it has worsened in the past 5 yrs. Does Kegel ex as well as abdominal exercises at home. States she sometimes leaks as she is heading to the bathroom after an urge and sometimes leaks with sneezing. Developmental History Developmental History 2 children, vaginal delivery with torn perineum both times with stitch repair. 2nd the stitches tore and was not repaired, so she reports a flap that sticks out . No urinary leakage with biking or hiking. Has back that limits activity. Pt reported PMH: meniscus tear bilaterally. Treatment Goals Patient/Caregiver Goals Pt goal is to 1) Get uterus to lift and strengthening ligs to hold it up, 2) lift rectal and bladder, 3) learn ex's and what to do to prevent surgery , 4) become comfortable at opening of anus. Personal Factors Other Personal Factors That May Effect Sciatic bilateral LE's, Therapy/Recovery hypothyroid. R handed, PT-OP-C Subjective Start: 01/10/23 18:46 Freq: Status: Active Protocol: Document 08/08/23 10:30 LRN (Rec: 08/08/23 12:12 LRN [id number]) OP-PT Subjective Patient Comments Patient Comments States has urinary leakage rarely, only if jumping or running on a full baldder when hot. States urinary leakage is only 1x/4 months. States her primary problem seems to be her back, positioning for intercourse and anterior L thigh pain with intercourse. PT-OP-I Pelvic Floor Start: 01/10/23 18:46 Freq: Status: Active Protocol: Document 08/08/23 10:30 LRN (Rec: 08/08/23 12:12 LRN [id number]) Pelvic Floor Assessment SEMG (uV) Baseline 2.2 Quick Contraction 13.6 10 Second Contraction 16.6 Recruitment Pattern Good Relaxation Fair Holding Good Stability of Hold Good SEMG Stability of Rest Fair Comments Pelvic Floor Comments Quick Flicks: 10 reps strength (uV's): avg work 14.2, avg rest 6.8. 20 reps strength (uV's): avg work 13.8, avg rest 6.1. Long Holds: 10 reps strength (uV's): avg work 12.8, avg rest 4.6. 20 reps strength (uV's): avg work 12.6, avg rest 3.6. PT-OP-J Posture/Palpation/Skin Start: 01/10/23 18:46 Freq: Status: Active Protocol: Document 01/24/23 11:26 LRN (Rec: 01/24/23 13:12 LRN [id number]) Posture Evaluation Position Standing T-Spine Posture Flattened L-Spine Posture Increased Lordosis Shoulder Posture Neutral,(L) Elevated Arm Posture (L) Internally Rotated,(R) Internally Rotated Pelvis Posture Anteriorly Tilted Knee Posture (L) Neutral,(R) Neutral Ankle/Foot Posture (L) Neutral,(R) Neutral Comments Posture Comments Decreased lordosis, slight anterior tilt PT-OP-K Range of Motion Start: 01/10/23 18:46 Freq: Status: Active Protocol: Document 01/24/23 11:26 LRN (Rec: 01/24/23 13:12 LRN [id number]) Lumbar Spine Range of Motion Lumbar Spine Active Degrees Testing Position Standing Flexion 115 Extension 30 Rotation Left 50 Rotation Right 50 Lateral Flexion Left 18 Lateral Flexion Right 15 Comments Lumbar ROM: Trunk Flexion is 115 deg?s with 83 deg?s hip flexion, Trunk extension is 30 deg?s with 10 deg?s hip extension Scoliosis in mid back upper curve apex to L, lower curve apex to R. Hip Goniometric Range of Motion Hip Right Passive Testing Position Supine Abduction 50 Internal Rotation 45 External Rotation 75 Left Passive Hip ROM WFL Yes Testing Position Supine Abduction 50 Internal Rotation 35 External Rotation 70 PT-OP-M Strength Start: 01/10/23 18:46 Freq: Status: Active Protocol: Document 01/24/23 11:26 LRN (Rec: 01/24/23 13:12 LRN [id number]) Trunk Strength Trunk Manual Muscle Testing Core Stabilization Not able to maintain core stab with MMT of R hip flex, unstable with hip AB/AD, L hip Ext. Hip Strength Hip Manual Muscle Testing Right Flexion (L2) 5 Normal Extension (S1) 3 Fair Abduction 5 Normal Adduction 5 Normal External Rotation 3+ Fair+ Internal Rotation 3+ Fair+ Comments Pain in lower R gluteals. Left Flexion (L2) 5 Normal Extension (S1) 5 Normal Abduction 5 Normal Adduction 5 Normal External Rotation 3+ Fair+ Internal Rotation 3 Fair PT-OP-Q Treatments Start: 01/10/23 18:46 Freq: Status: Active Protocol: Document 08/08/23 10:30 LRN (Rec: 08/08/23 12:12 LRN [id number]) Therapeutic Exercises Supine Exercises LE neural glide Supine Exercise Name Hamstring/LE neutral stretch Side bilateral Reps/Minutes 10 SH x 10 ankle pumps x 6 each Comments Cuing to hold HS stretch and ankle mvmts of any kind, and NOT into pain. Piriformis stretch Supine Exercise Name Ankle over knee>knee to chest & crossed legs>knee to chest Side bilateral Reps/Minutes 30 SH x 2 each Comments Cuing to not stretch into pain Resting tone Supine Exercise Name 2.2 uV's Reps/Minutes 1x - 60 sec assessment Comments Extra time needed due to change in program. PF contraction Supine Exercise Name Review of PF contractions in isolation of substitute muscles. Reps/Minutes 2' Comments Pt feels she knows what PF contraction feels like (lift) and can isolate. Long Holds Supine Exercise Name Long Holds contractions with biofeedback Equipment Used EMG Biofeedback Reps/Minutes 10 SH x10 & 20 rep contractions (see PF assessment above) Comments Extra time needed due to change in program. Quick Flicks Supine Exercise Name Quick Flicks Equipment Used vEMG electrode Reps/Minutes 2 sec/5 sec rest Comments 10 & 20 rep contractions (see PF assessment above) Sitting Exercises C/S stretch Sitting Exercise Name SB and SB w/rotation Side bilateral Reps/Minutes 3' Manual Therapy Treatment Soft Tissue Mobilization Upper back/Low Back Body Location R UT Mobilization Type Instrument Assisted Body Position Sitting Comments Pt provided self STM with Theracane with graded pressure at active trigger points. Self-Care/Home Management Treatment Education Other Education Pt educated and discussed: types of pads for bladder leakage (vs menstrual pads). Educ pt in use of Theracane for UT tightness. Activities Self-Care/Home Management Activities Issued & reviewed HEP: Piriformis stretch supine & sit, and LE neural/hamstring stretch. PT-OP-T Assessment and Plan Start: 01/10/23 18:46 Freq: Status: Active Protocol: Document 08/08/23 10:30 LRN (Rec: 08/08/23 12:12 LRN [id number]) Physical Therapy Assessment Goals Three Impairment Pt is not able to perform a PF contraction in the absence of abdominal/glut Short Term Goal (STG) Pt will be aware of the sensation of a proper PF contraction. STG Duration 08/02/23 (2 weeks) (08/05/23 : MET GOAL) Dialysis Tech Goal (LTG) Pt will be able to isolate a PF contraction with a rectal and bladder lift, without overuse of the outer abdominal , gluteal, and hip AD muscles. 04/18/23: Pt able to perform PF contraction in isolation of the gluteal & hip AD ms. TA tightens mildly. 08/08/23: TA tightens mildly LTG Duration 09/16/23 (4 weeks) (08/08/23: Partially met goal) Two Impairment PF weakness with urinary leakage with an urge and stress. Short Term Goal (STG) Pt will be educated in urinary delay technique. STG Duration 02/01/23 (02/21/23: MET GOAL) Dialysis Tech Goal (LTG) Pt will demonstrate improved PF strength per EMG biofeedback. 07/15/23: Hardly ever leaks. Leaks with running or jumping. 07/22/23: Strength of contraction is about the same but PF relaxation is slightly less. 08/08/23: (Values in uV's) Resting tone 2.2 (initial was 2.7) Quick Contractions (20 reps) Work 13.8 (was 13.8)/ Rest 6.1 (was 6.1). Long Hold (20 reps) Work 16.6 (was 12.6 )/Rest 2.9 (was 3.6). LTG Duration 09/16/23 (4 weeks) (08/08/23 : MET GOAL) One Impairment Lacks appropriate self care HEP. Impairment PUF score 3. Short Term Goal (STG) Education in proper methods for transfer with coordination of breathing, PF contractions , and proper vulvar/genital care. 02/14/23: Educated in pt transfers with coordination of breathing and PF contractions . Issued handout for proper vulvar/genital care. 02/21/23: Reviewed coordination of breathing/PF contractions with transfers, and proper vulvar/genital care. STG Duration 02/01/23 02/21/23: MET GOAL. Intermediate Goal (LTG) Pt will be independent with a self care HEP of PF/core strengthening and hip ROM exercises to work towards surgery prevention. 02/14/23: I/S pt in transfers with coordination of breathing and PF strengthening (long holds and quick flicks). 02/21/23: HEP: PF/LE roll in- outs. 08/08/23: HEP: Piriformis and LE neural/hamstring stretch. Pt I/S in use of Theracane for back pain relief . LTG Duration 09/16/23 (4 weeks) (08/08/23 : MET GOAL). Assessment Summary Assessment Pt has improved in endurance with increased in strength of isolated PF contraction and a lower resting tone. Her Quick contractions show consistent strength over 20 reps ( previously showed reduced strength over 20 reps) but an increase in resting tone ( inital was 6.1 uV's, current was 8.0 uV's), but initially she was given 4 secs to achieve resting tone vs this time 2 secs, making possibly for a higher resting tone ( change in program was reason for difference in timing). The pt has low back pain that appears to be involved in her discomfort with positioning for intercourse, and has symptoms of L3, L4 sensory changes with intercourse; therefore it is recommended that the pt seek treatment for her low back and when completed, return for PF therapy if there are symptoms of PF dysfunction. The pt has met most of her goals and is ready to continue with her self care PF HEP. Physical Therapy Plan Discharge Physical Therapy Discharge Reasons Patient Request Discharge Comments See assessment above. Thank you for your referral.
== END 2023-08-16 11:21 | disposition home or self-care (01) ==
LOC: PHYS 10:30
PROVIDERS: Absent Provider Registered Nurse Diabetes Educator; Family Provider Registered Nurse Diabetes Educator; PCP Registered Nurse Diabetes Educator; Referring Provider Obstetrics & Gynecology; Visit Provider Obstetrics & Gynecology
DX: N81.89 Other female genital prolapse (principal); N39.3 Stress incontinence (female) (male); N39.41 Urge incontinence; M62.81 Muscle weakness (generalized); M25.659 Stiffness of unspecified hip, not elsewhere classified; K59.00 Constipation, unspecified; M54.30 Sciatica, unspecified side; Z74.09 Other reduced mobility
CPT/HCPCS: 97110; 97112; 97140; 97161; 97535